=== PATIENT | female | born 1980 | race Caucasian/White ===

== ENCOUNTER → 2018-09-04 16:55 | Outpatient (CLI) | payer OTHER, SELFPAY ==
[2018-09-08 12:51] LABS: HPV Reflexed? NOT INDICATED
== END ==
PROVIDERS: Visit Provider Obstetrics & Gynecology
DX: Z12.4 Encounter for screening for malignant neoplasm of cervix (principal)
CPT/HCPCS: 87624; 88175; G0145

== ENCOUNTER → 2019-01-08 16:22 | Outpatient (CLI) | payer BC, SELFPAY | DX: E34.9 Endocrine disorder, unspecified (principal) | CPT/HCPCS: 36415; 84144 ==

== ENCOUNTER → 2020-03-24 09:03 | Outpatient (CLI) | payer BC, SELFPAY ==
[2020-03-24 10:36] LABS: Progesterone Level 18.11 ng/mL (See Comment)
== END ==
DX: N94.6 Dysmenorrhea, unspecified (principal); N94.10 Unspecified dyspareunia; N80.9 Endometriosis, unspecified
CPT/HCPCS: 36415; 84144

== ENCOUNTER → 2020-03-28 11:24 | Outpatient (CLI) | payer BC, SELFPAY ==
[2020-03-28 13:31] LABS: Progesterone Level 4.52 ng/mL (See Comment)
== END ==
DX: N94.6 Dysmenorrhea, unspecified (principal); N94.10 Unspecified dyspareunia; N80.9 Endometriosis, unspecified
CPT/HCPCS: 36415; 84144

== ENCOUNTER → 2020-04-01 10:19 | Outpatient (CLI) | payer BC, SELFPAY ==
[2020-04-01 11:52] LABS: Progesterone Level 4.94 ng/mL (See Comment)
== END ==
DX: N94.6 Dysmenorrhea, unspecified (principal); N94.10 Unspecified dyspareunia; N80.9 Endometriosis, unspecified
CPT/HCPCS: 36415; 84144

== ENCOUNTER → 2020-04-14 | Outpatient (CLI) | payer BC, SELFPAY | END | disposition home or self-care (01) | LOC: LABSPEC 10:47 | DX: Z03.818 Encounter for observation for suspected exposure to other biological agents ruled out (principal) | CPT/HCPCS: 87635; G2023; U0003 ==

== ENCOUNTER 2020-06-25 18:11 | Emergency (ER) | payer BC, SELFPAY ==
[2020-06-25 18:12] VITALS: BP 132/90; PULSE 70; RESP 14; TEMP 36.6; O2SAT 96; BMI 21.7
--- NOTE | 2020-06-25 18:39 | ED.VIS.GEN ---
History of Present Illness Chief Complaint: Laceration Informant: Patient Narrative: Patient is a 40-year-old previously healthy female who presents to the emergency department for laceration to her left forearm. She states that she had a knife that was designed to cut potatoes into fries. Had multiple blades on it. It slipped and cut her wrist. Bleeding controlled prior to arrival in the ED. She is not on any anticoagulation or antiplatelet medications. Incision or range of motion of the hand or fingers. She believes that her last tetanus shot was greater than 5 years ago. No other injury noted. Past Medical History - Allergies and Home Meds Allergies/Adverse Reactions: Allergies No Known Allergies Allergy (Verified 06/25/20 18:12) Primary Care Physician: Care Physician,No Primary [Primary Care Provider] - 7 Days for suture removal Mari Pearson [[facility]] - Prior records reviewed: Yes Past Medical History: None Review of Systems All systems negative except as indicated General: Denies: Chills, Fever Cardiovascular: Denies: Chest pain Respiratory: Denies: Dyspnea Gastrointestinal: Denies: Abdominal pain, Nausea, Vomiting Musculoskeletal: Reports: Extremity Pain. Denies: Swelling Skin: Reports: Wounds Neurological: Denies: Weakness, Parasthesia, Numbness Hematologic: Denies: Easy bruising, Easy bleeding Physical Exam Vital Signs/Narrative: Vital Signs Temp Pulse Resp BP Pulse Ox 06/25/20 18:12 97.8 F 70 14 132/90 H 96 General: Well nourished, Well developed Head: Normocephalic, Atraumatic Eyes: Perrl, EOMI ENT: Moist mucous membranes Neck: Supple Cardiovascular: Regular rate Respiratory: No distress Extremities: - - Has 4 lacerations varying in depth. There is part of the skin avulsed. No tendon, nerve or vasculature involvement. No foreign body appreciated. Good range of motion of fingers and wrist. Sensation intact. Good capillary refill. Skin: Normal color, No rash Neurological: Alert Psychological: Normal affect, Normal Mood Diagnostic/Tx/Re-eval - Medical Decision Making Patient presents to the ED for laceration to her left wrist. Will update her on her tetanus shot. 2 of the lacerations will require repair. Patient's lacerations were repaired. She tolerated the procedure well without any apparent complication. She is to monitor for evidence of infection. She is otherwise neurovascularly intact. She is to have the sutures removed in 7 to 10 days. She does not have a PCP so she was given a referral for 1. She is to monitor for evidence of infection. She understands and is agreeable this plan. Will discharge home in stable condition. Procedures Procedure(s): Laceration repair: Informed consent was obtained before procedure started. The appropriate timeout was taken. The area was prepped and draped in the usual sterile fashion. Local anesthesia was achieved using LET. The wound was copiously irrigated. 3 6-0 Ethilon simple interrupted sutures were placed in both lacerations. Each laceration is 3cm in length A dressing/antibiotic oinment was applied to the area and anticipatory guidance, as well as standard post procedure care, was explained. Return precautions are given. The patient tolerated the procedure well without any apparent complications. Follow-up visit set for suture removal and evaluation of laceration. ED Disposition - Plan for ED Patient: Disposition: Home or Assisted Living Diagnosis: Laceration of wrist Instructions: ED Laceration All Closures Referrals: Care Physician,No Primary [Primary Care Provider] - 7 Days for suture removal Mari Pearson [[facility]] -
[2020-06-25] MEDS: Lidocaine/Epi/Tetracaine 50 ML 1 APPLIC TOPICAL (19:09)
[2020-06-25] MEDS: Diphth,Pertuss(Acell),Tet Vac 0.5 ML Vial IM (19:09)
[2020-06-25 20:12] VITALS: RESP 16
== END 2020-06-25 20:13 | disposition home or self-care (01) ==
PROVIDERS: Emergency Provider Emergency Medicine
DX: S51.812A Laceration without foreign body of left forearm, initial encounter (principal); W26.0XXA Contact with knife, initial encounter
CPT/HCPCS: 12002; 90471; 90715; 99282

== ENCOUNTER → 2020-07-21 13:43 | Outpatient (CLI) | payer BC, SELFPAY ==
[2020-06-25 18:12] VITALS: BMI 21.7
[2020-07-21 15:58] LABS: Progesterone Level 15.94 ng/mL (See Comment)
== END ==
DX: E34.9 Endocrine disorder, unspecified (principal)
CPT/HCPCS: 36415; 84144

== ENCOUNTER → 2020-12-15 16:32 | Outpatient (CLI) | payer BC, SELFPAY | PROVIDERS: Referring Provider Obstetrics & Gynecology; Visit Provider Obstetrics & Gynecology | DX: N94.6 Dysmenorrhea, unspecified (principal) | CPT/HCPCS: 36415; 84144 ==

== ENCOUNTER → 2021-01-16 | Outpatient (CLI) | payer BC, SELFPAY ==
[2021-01-21 17:28] LABS: HPV Reflexed? NOT INDICATED
== END | disposition home or self-care (01) ==
LOC: LABSPEC 13:07
PROVIDERS: Visit Provider Obstetrics & Gynecology
DX: Z12.4 Encounter for screening for malignant neoplasm of cervix (principal)
CPT/HCPCS: 88175; G0145

== ENCOUNTER → 2022-03-04 | Outpatient (CLI) | payer BC, SELFPAY ==
--- NOTE | 2022-03-04 16:18 | BI_ITS ---
MAMMOGRAPHY - BILATERAL SCREENING REASON FOR EXAM: Female, 41 years old. Routine annual screening examination. PERTINENT HISTORY: Non-contributory. TECHNIQUE: Digital bilateral breast brenden (3D mammographic acquisition) in the CC and MLO projections. 2-D mediolateral oblique (MLO) and craniocaudad (CC) views of both breasts were obtained. CAD: Full Field Digital Mammography with Computer Added Detection was performed. COMPARISON: None. Baseline examination. FINDINGS: Breast Composition: The breasts are extremely dense, which lowers the sensitivity of mammography. There are no dominant masses or suspicious calcifications. No other significant abnormalities are identified. BI/SCRN MAMM (CAD)W/BRENDEN BILAT IMPRESSION: Negative screening mammogram. Yearly followup mammogram recommended. (A) ASSESSMENT CATEGORY: BIRADS Category 1: Negative. A letter regarding these results will be sent to the patient by the facility within 30 days. Approximately 10% of breast cancers are not detected by mammography. A normal mammogram should not delay biopsy of a clinically suspicious abnormality. [id number] Electronically Signed: Gopi Ibrahim MD at 8:14 EDT ,
== END | disposition home or self-care (01) ==
LOC: OPBI 16:16
PROVIDERS: Visit Provider Obstetrics & Gynecology
DX: Z12.31 Encounter for screening mammogram for malignant neoplasm of breast (principal)
CPT/HCPCS: 77063; 77067

== ENCOUNTER → 2023-03-30 | Outpatient (CLI) | payer BC, SELFPAY ==
--- NOTE | 2023-03-30 15:44 | BI_ITS ---
MAMMOGRAPHY - BILATERAL SCREENING REASON FOR EXAM: Female, 42 years old. Routine annual screening examination. PERTINENT HISTORY: Aunt with breast cancer. TECHNIQUE: Digital bilateral breast brenden (3D mammographic acquisition) in the CC and MLO projections. 2-D mediolateral oblique (MLO) and craniocaudad (CC) views of both breasts were obtained. CAD: Full Field Digital Mammography with Computer Added Detection was performed. COMPARISON: Mammogram from 03/04/2022. FINDINGS: Breast Composition: The breasts are extremely dense, which lowers the sensitivity of mammography. There is an asymmetry in the left central slightly outer breast, posterior depth, approximately 5.4 cm posterior to the nipple and seen best on 3-D cc views. This may correlate to the asymmetry in the left lower breast, posterior depth, approximately 5 cm posterior to the nipple and seen best on 3-D MLO views. Further assessment with spot compression and if needed is recommended. No other significant abnormalities are identified. No abnormal calcifications. BI/SCRN MAMM (CAD)W/BRENDEN BILAT IMPRESSION: Further imaging evaluation recommended, as described above. (E) Recall Side: Left Breast ASSESSMENT CATEGORY: BIRADS Category 0: Incomplete. Need additional imaging evaluation. A letter regarding these results will be sent to the patient by the facility within 30 days. Approximately 10% of breast cancers are not detected by mammography. A normal mammogram should not delay biopsy of a clinically suspicious abnormality. Electronically Signed: Darvin Garber DO at 16:22 EDT ,
== END | disposition home or self-care (01) ==
LOC: OPBI 15:42
PROVIDERS: Referring Provider Obstetrics & Gynecology; Visit Provider Obstetrics & Gynecology
DX: Z12.31 Encounter for screening mammogram for malignant neoplasm of breast (principal)
CPT/HCPCS: 77063; 77067

== ENCOUNTER → 2023-04-08 | Outpatient (CLI) | payer BC, SELFPAY ==
--- NOTE | 2023-04-08 13:24 | US_ITS ---
STUDY: ULTRASOUND BREAST - LEFT REASON FOR EXAM: Female, 42 years old. Abnormal screening mammogram. TECHNIQUE: Axial and longitudinal images of the LEFT breast were performed with a high resolution ultrasound transducer. # OF IMAGES: 14 COMPARISON: Comparison is made with prior mammogram done earlier in the day. FINDINGS: LEFT Breast: The inferior aspect of the left breast was examined with ultrasound. There is a 1.2 cm x 0.7cm x 0.4 cm complex cyst at the 6:00 position of the breast at 6 cm from the nipple. Adjacent to this at the 5:00 position of the breast at 6 cm from the nipple, there is a 1 cm x 1.2 cm x 0.4 cm complex cyst. Biopsy recommended. US/Breast Limited Unilateral IMPRESSION: Complex cysts seen at the 6:00 and 5:00 position of the breast as described. Biopsy recommended. ASSESSMENT CATEGORY: BIRADS Category 4: Suspicious - Biopsy Should Be Considered. A letter regarding these results will be sent to the patient by the facility within 30 days. Electronically Signed: Gopi Ibrahim MD at 8:37 EDT ,
--- NOTE | 2023-04-08 13:24 | BI_ITS ---
MAMMOGRAPHY - UNILATERAL DIAGNOSTIC: LEFT BREAST REASON FOR EXAM: Female, 42 years old. Abnormal screening mammogram. PERTINENT HISTORY: Aunt with breast cancer. TECHNIQUE: Compression spot views of the left breast were obtained. CAD: Full Field Digital Mammography with Computer Added Detection was performed. COMPARISON: Comparison is made with prior study March 30, 2023. FINDINGS: Breast Composition: The breasts are extremely dense, which lowers the sensitivity of mammography. Persistent 8.7 mm x 6.9 mm nodular density in the inferior deep slightly lateral aspect of the left breast. Correlation with ultrasound is recommended. No other significant abnormalities are identified. BI/DIAG MAMM W/CAD, UNILAT IMPRESSION: Persistent 8.7 mm x 6.9 mm nodular density at the 5 to 6:00 position of the left breast. Correlation with ultrasound is recommended. ASSESSMENT CATEGORY: BIRADS Category 0: Incomplete. Need additional imaging evaluation. A letter regarding these results will be sent to the patient by the facility within 30 days. Approximately 10% of breast cancers are not detected by mammography. A normal mammogram should not delay biopsy of a clinically suspicious abnormality. Electronically Signed: Gopi Ibrahim MD at 10:06 EDT ,
== END | disposition home or self-care (01) ==
LOC: OPBI 13:21
PROVIDERS: Referring Provider Obstetrics & Gynecology; Visit Provider Obstetrics & Gynecology
DX: N64.89 Other specified disorders of breast (principal)
CPT/HCPCS: 76642; 77065

== ENCOUNTER → 2023-05-17 | Outpatient (CLI) | payer BC, SELFPAY ==
--- NOTE | 2023-05-17 | BRBX_PTH ---
PATIENT: SULMA DICKERSON LOC: [facility]#:[id number] AGE/SX: 42/F ROOM: RE05/17/[address]: Dr. Abi Hassan MD : 1980 BED: DIS: 05/17/2023 SPEC #: [id number] RECD: 05/17/23 15:02 STATUS: ILANA TABITHA #: [id number] DIALLO: 05/17/23 00:[address]: Abi Hassan DEPT: SURGICAL PATHOLOGY RECD BY: Segun Amaya ENTERED: 05/18/23 09:20 SP TYPE: BREAST BX OTHR DR: No Primary Care Phys Tissues: Left breast, NOS Procedures: Surgery Specimen Level IV HEADER OPERATION: Left breast biopsy PRE-OP DIAGNOSIS: Left breast mass TISSUE SUBMITTED: Left breast mass MICROSCOPIC DIAGNOSIS Left breast mass, core biopsy: Cystic apocrine metaplasia. No evidence of malignancy. AM:am 05/19/23 MICROSCOPIC DESCRIPTION Slides are reviewed. GROSS DESCRIPTION Received is one container labeled with the patient name and designated left brat mass. The specimen consists of multiple irregular fragments of light mckeon soft tissue that in aggregate measure 1.5 x .5 x .5 cm. The specimen is totally submitted in one cassette. / SJ:cc 05/18/23 TC:5 CPT:78903
--- NOTE | 2023-05-17 13:56 | US_ITS ---
STUDY: ULTRASOUND BREAST - LEFT REASON FOR EXAM: Female, 43 years old. Ultrasound-guided left breast biopsy. TECHNIQUE: Axial and longitudinal images of the LEFT breast were performed with a high resolution ultrasound transducer. # OF IMAGES: 36 COMPARISON: Comparison is made with prior sonogram dated April 08, 2023. FINDINGS: LEFT Breast: Under direct sonographic guidance, the surgeon performed core biopsies of the nodule at the 5:00 position of the breast at 6 cm from the nipple. US/US Breast Biopsy 1st Lesion IMPRESSION: Ultrasound-guided breast biopsy of the hypoechoic solid nodule at the 5:00 position of the breast at 6 cm from the nipple. ASSESSMENT CATEGORY: BIRADS Category 2: Benign. A letter regarding these results will be sent to the patient by the facility within 30 days. Electronically Signed: Gopi Ibrahim MD at 11:01 EDT ,
--- NOTE | 2023-05-17 14:54 | OP.PCM_ITS ---
Report of Operation Date of Procedure: 05/17/23 Pre-Operative Diagnosis: Left breast complex cyst x2 Post-Operative Diagnosis: Left breast complex cyst x1 Surgery/Procedure Performed:: Ultrasound guided left breast biopsy Surgeon: Abi Hassan Type of Anesthesia: Local Estimated Blood Loss (mL): < 10 cc Description of Procedure: Procedure: Left ultrasound-guided core biopsy Indications: 43 year-old female with complex cyst nodule at 5:00 and 6:00 in the left breast 6 centimeters from the nipple repeat ultrasound showed the 6:00 nodule to be more cystic in nature this biopsy was only done for the 5:00 lesion. Risk benefits were discussed the patient and she elected to proceed with ultrasound guided core biopsy with clip placement Description of procedure: Patient was brought into the ultrasound room in the left breast was marked. A timeout was completed verifying correct patient, procedure, site, specially, prior to beginning procedure. The left breast was prepped and draped in usual sterile fashion and using local anesthesia was obtained with 1% lidocaine with epi. The lesion was located with the ultrasound. Small incision was made with 11 blade to introduced the mammotome through the skin. Under ultrasound guidance multiple core samples were obtained using then 13-gauge mammotome and sent in formalin for pathology. The [employer] dual ultra ribbon clip was then deployed into the biopsy cavity under ultrasound guidance and a picture was taken. Upon completion procedure hemostasis was obtained and a Steri-Strip and OpSite were placed. Patient was then taken to the mammography suite for clip verification. The clip was verified. The patient tolerated the procedure well and was discharged from the breast imaging department good condition. Complications none
== END | disposition home or self-care (01) ==
PROVIDERS: Referring Provider Surgery; Visit Provider Surgery
DX: N60.82 Other benign mammary dysplasias of left breast (principal); R92.8 Other abnormal and inconclusive findings on diagnostic imaging of breast
CPT/HCPCS: 19083; 88305

== ENCOUNTER → 2023-11-11 | Outpatient (CLI) | payer BC, SELFPAY ==
--- NOTE | 2023-11-11 08:53 | US_ITS ---
STUDY: ULTRASOUND BREAST - LEFT REASON FOR EXAM: Female, 43 years old. Short interval follow-up TECHNIQUE: Axial and longitudinal images of the LEFT breast were performed with a high resolution ultrasound transducer. # OF IMAGES: 41 COMPARISON: 04/08/2023 FINDINGS: LEFT Breast: Heterogeneous background echotexture. At 5:00, 6 cm in the nipple, there is been interval decrease in the size of the oval parallel circumscribed hypoechoic mass from 1.2 cm in diameter to 0.4 cm in diameter with an adjacent marking clip consistent with previously biopsied mass. At 6:00, 6 cm nipple, there is no change in the 1.1 cm oval parallel circumscribed hypoechoic mass with no posterior features.: US/Breast Limited Unilateral IMPRESSION: 1. Interval decrease in size of hypoechoic mass at 5:00 after interval biopsy with a marking clip. 2. No change 1.1 cm oval hypoechoic mass. ASSESSMENT CATEGORY: BIRADS Category 2: Benign. A letter regarding these results will be sent to the patient by the facility within 30 days. Electronically Signed: Shawn Faria MD at 17:42 EST ,
== END | disposition home or self-care (01) ==
PROVIDERS: Referring Provider Surgery; Visit Provider Surgery
DX: N63.20 Unspecified lump in the left breast, unspecified quadrant (principal)
CPT/HCPCS: 76642

== ENCOUNTER → 2024-04-04 | Outpatient (CLI) | payer BC, SELFPAY ==
[2024-04-04 09:18] LABS: Hematocrit 40.4 % (37-47); Mean Corp Hgb Conc 32.2 g/dL (32-36); Mean Corpuscular Hgb 28.8 pg (27.0-32.0); Mean Corpuscular Volume 89.6 fL (81-99); Mean Platelet Vol. 10.8 fl (6.2-12.0); Platelet Count 193 K/mm3 (150-450); RBC Distribution Width CV 12.9 % (11.6-14.6); RBC Distribution Width SD 42.3 fl (35.1-43.9); Red Blood Count 4.51 M/mm3 (4.2-5.4); White Blood Count 5.3 K/mm3 (4.4-11.0)
[2024-04-04 09:57] LABS: Glucose 75GTT - 30 minutes 100 mg/dL (100-160)
[2024-04-04 09:59] LABS: Glucose 75GTT - Fasting 84 mg/dL (70-99)
[2024-04-04 10:00] LABS: Bedside Glucose 86 mg/dL (74-106)
[2024-04-04 10:11] LABS: Glucose 75GTT - 60 minutes 77 mg/dL (100-160)
[2024-04-04 10:31] LABS: Glucose 75GTT - 120 minutes 82 mg/dL (70-140)
[2024-04-04 12:32] LABS: Prolactin 10.2 ng/mL; Thyroid Stim Hormone (TSH) 1.34 uIU/mL (0.358-3.74)
[2024-04-04 12:32] LABS: Prolactin 19.8 ng/mL; Thyroid Stim Hormone (TSH) 1.89 uIU/mL (0.358-3.74)
[2024-04-04 14:30] LABS: ALB/GLOB Ratio 1.1 RATIO (0.9-2.4); AST(SGOT) 17 U/L (15-37); Alanine Aminotransfer ALT/SGPT 18 U/L (13-56); Albumin, Serum 3.9 g/dL (3.2-5.0); Alkaline Phosphatase 64 U/L (45-117); Anion Gap 4 (5-15); BUN 14 mg/dL (7-18); BUN/Creat Ratio 17.5 RATIO (10-20); Calcium,Total 9.3 mg/dL (8.5-10.1); Chloride 107 mmol/L (98-107); Cholesterol 168 mg/dL (200); EST Glomerular Filtration Rate 83 mL/min (>60); Est Glom Filt Rate - Afr Amer 101 mL/min (>60); Free T3 2.8 pg/mL (2.18-3.98); Globulin 3.7 g/dL (2.2-4.2); Glucose 76 mg/dL (74-106); High Density Lipoprotein 70 mg/dL; Potassium 4.1 mmol/L (3.5-5.1); Prolactin 20.4 ng/mL; Protein, Total 7.6 g/dL (6.4-8.2); Sodium Level 137 mmol/L (136-145); T4 Free Direct 0.88 ng/dL (0.76-1.46); Thyroid Stim Hormone (TSH) 1.81 uIU/mL (0.358-3.74); Triglycerides 55 mg/dL; Very Low Density Lipoprotein 11 mg/dL (5-40)
[2024-04-04 17:09] LABS: T3 Total - Triiodothyronine 1.07 ng/mL (0.6-1.81)
== END | disposition home or self-care (01) ==
LOC: LAB 07:10
PROVIDERS: Referring Provider Obstetrics & Gynecology; Visit Provider Obstetrics & Gynecology
DX: Z01.419 Encounter for gynecological examination (general) (routine) without abnormal findings (principal); Z13.228 Encounter for screening for other metabolic disorders; R73.09 Other abnormal glucose; E28.9 Ovarian dysfunction, unspecified
CPT/HCPCS: 36415; 80053; 80061; 82951; 82952; 82962; 84146; 84439; 84443; 84480; 84481; 85027

== ENCOUNTER → 2024-04-10 | Outpatient (CLI) | payer BC, SELFPAY ==
--- NOTE | 2024-04-10 16:56 | BI_ITS ---
MAMMOGRAPHY - BILATERAL SCREENING REASON FOR EXAM: Female, 43 years old. Routine annual screening examination. PERTINENT HISTORY: Non-contributory. TECHNIQUE: Digital bilateral breast brednen (3D mammographic acquisition) in the CC and MLO projections. 2-D mediolateral oblique (MLO) and craniocaudad (CC) views of both breasts were obtained. CAD: Full Field Digital Mammography with Computer Added Detection was performed. COMPARISON: Comparison is made with prior study March 30, 2023 and April 08, 2023. FINDINGS: Breast Composition: The breasts are extremely dense, which lowers the sensitivity of mammography. There are no dominant masses or suspicious calcifications. A tissue marker is seen in the deep central slightly lateral aspect of the left breast and compared with prior biopsy. The previously seen nodular density is not seen at this time most likely represents aspiration of a cyst. No other significant abnormalities are identified. BI/SCRN MAMM (CAD)W/BRENDEN BILAT IMPRESSION: Stable bilateral screening mammogram. Yearly follow-up mammogram recommended. (A) ASSESSMENT CATEGORY: BIRADS Category 2: Benign. A letter regarding these results will be sent to the patient by the facility within 30 days. Approximately 10% of breast cancers are not detected by mammography. A normal mammogram should not delay biopsy of a clinically suspicious abnormality. [id number] Electronically Signed: Gopi Ibrahim MD at 8:41 EDT ,
== END | disposition home or self-care (01) ==
LOC: OPBI 04-11 07:16
PROVIDERS: Referring Provider Obstetrics & Gynecology; Visit Provider Obstetrics & Gynecology
DX: Z12.31 Encounter for screening mammogram for malignant neoplasm of breast (principal)
CPT/HCPCS: 77063; 77067

== ENCOUNTER → 2024-05-16 | Outpatient (CLI) | payer BC, SELFPAY ==
--- NOTE | 2024-05-16 07:47 | US_ITS ---
STUDY: ULTRASOUND BREAST - LEFT REASON FOR EXAM: Female, 43 years old. Short interval follow-up TECHNIQUE: Axial and longitudinal images of the LEFT breast were performed with a high resolution ultrasound transducer. # OF IMAGES: 18 COMPARISON: 11/11/2023 FINDINGS: LEFT Breast: Heterogeneous background echotexture. At 5:00, 6 cm from the nipple, ultrasound demonstrates no change in the 4 mm oval parallel circumscribed hypoechoic mass with adjacent marking clip consistent with a previously biopsied mass. At 6:00, 6 cm from nipple, there is no change in the 1 cm oval parallel circumscribed hypoechoic mass with central increased echogenicity no posterior features which may represent an intramammary lymph node.: US/Breast Limited Unilateral IMPRESSION: 1. No change in subcentimeter previously biopsied mass in the lower outer quadrant left breast. 2. No change in 1 cm probable intramammary lymph node in the inferior left breast. ASSESSMENT CATEGORY: BIRADS Category 2: Benign. A letter regarding these results will be sent to the patient by the facility within 30 days. Electronically Signed: Shawn Faria MD at 12:28 EDT ,
== END | disposition home or self-care (01) ==
PROVIDERS: Referring Provider Surgery; Visit Provider Surgery
DX: N63.20 Unspecified lump in the left breast, unspecified quadrant (principal)
CPT/HCPCS: 76642

== ENCOUNTER → 2025-05-18 | Outpatient (CLI) | payer BC, SELFPAY ==
--- OUTSIDE RECORDS SUMMARY | 2025-05-18 08:27 | XMS RPT_ITS | CCD ---
Author Organization [facility] Care Team Providers Care Treasury Assistant Name Role Phone Care Physician, No Primary Primary Care Provider Unavailable Care Physician, No Primary Referring Provider Un available Dr. Abi Hassan Attending Provider Abi Hassan Attending Unavailable Abi Hassan Referring Unavailable Care Physician, No Primary Primary Care Unava ilable Abi Hassan Attending Unavailable Care Physician, No Primary Primary Care Unava ilable Care Physician, No Primary Referring Unava ilable Abi Hassan Attending Unavailable Abi Hassan Referring Unavailable Care Physician, No Primary Primary Care Unava ilable Alida Hooper Attending Unavailable Alida Hooper Referring Unavailable Care Physician, No Primary Primary Care Unava ilable Alida Hooper Attending Unavailable Alida Hooper Referring Unavailable Care Physician, No Primary Primary Care Unava ilable Care Physician, No Primary Primary Care Unava ilable Abi Hassan Referring Unavailable Abi Hassan Attending Unavailable Abi Hassan Attending Unavailable RobotbAi aleman Referring Unavailable Abi Hassan Consulting Unavailable Care Physician, No Primary Primary Care Unava ilable Unavailable Primary Care Provider Unavailabl e Allergies Allergy Classification Reported Allergen(s) Allergy Type Date of Onset Reaction(s) Facility (1 source) Cephalexin Drug Allergy 11-15-2023 Itching [facility] (1 source) Cephalexin Drug Allergy 11-15-2023 [facility] Repository Medications Current Medications Medication Drug Class(es) Dates Sig (Normalized) Sig (Original) polymyxin b 45609 unt/ml / trimethoprim 1 mg/ml ophthalmic solution (1 source) Dihydrofolate Reductase Inhibitor Antibacterial, Polymyxin-class Antibacterial Start: 10-17-2024 End: 10-24-2024 take 1 drop(s) into the eye(s) every four hours trimethoprim-polymy rivera (POLYTRIM) 10,000 unit- 1 mg/mL ophthalmic solution Indications: Bacterial conjunctivitis Use 1 Drop in the right eye every 4 hours for 7 days. 10 mL 10/17/2024 10/24/2024 Active progesterone 200 mg oral capsule (5 sources) Progesterone Start: 06-25-2020 take 1 capsule by mouth once daily at bedtime progesterone micronized (PROMETRIUM) 200 mg capsule TAKE 1 CAPSULE(S) EVERY DAY BY ORAL ROUTE AT BEDTIME FOR 12 DAYS. 06/26/2020 Active Problems Problem Classification Problem Date Documented Da te Episodic/Chronic Inflammation; infection of eye (except that caused by tuberculosis or sexually transmitteddisease) (1 source) Bacterial conjunctivitis; Translations: [Unspecified conjunctivitis] 10-17-2024 Episodic Nonmalignant breast conditions (4 sources) Breast lump; Translations: [Unspecified lump in the left breast, unspecified quadrant] Onset: 05-24-2023 05-05-2023 Episodic Open wounds of extremities (4 sources) Laceration of wrist; Translations: [Laceration without foreign body of unspecified wrist, initial encounter] 06-26-2020 Episodic Other screening for suspected conditions (not mental disorders or infectious disease) (1 source) Encounter for screening mammogram for malignant neoplasm of breast; Translations: [Encounter for screening mammogram for malignant neoplasm of breast] Onset: 04-20-2024 Episodic Results Test Name Value Interpretation Reference Range Facility [facility] 10-17-2024 CNOV Office Visit ([facility]) ---- MARICRUZ DICKERSON ([id number]) 1980 F Date Time Provider Department 10/17/24 7:15 AM [facility] During your visit today, we recorded the following information about you: Temperature Pulse Respiration Blood pressure 96.9 degrees 96/minute 16/minute 118/70 Weight 66 kg Mary Darden APRN.CNP 10/17/2024 7:36 AM Signed Subjective Eye Problem Pertinent negatives include no chills, congestion, coughing, fever or sore throat. Maricruz Dickerson is a 44 year old female who presents with possible pink eye in her right eye. She was exposed to pinkeye-her daughter had it last week. She awoke this morning with eye redness, discharge and yellow crusting on eyelids. She denies eye pain, fever, chills, or associated URI symptoms. She has not used any medication in the eye. Review of Systems Constitutional: Negative for chills, fever and malaise/fatigue. HENT: Negative for congestion, ear pain and sore throat. Eyes: Positive for discharge and redness. Negative for blurred vision, double vision, photophobia and pain. Right eye visual acuity is 20/20. Respiratory: Negative for cough. Cardiovascular: Negative. BP 118/70 Pulse 96 Temp 36.1 ?C (96.9 ?F) Resp 16 Wt 66 kg (145 lb 8.1 oz) SpO2 99% No past medical history on file. No past surgical history on file. ALLERGIES Patient has no known allergies. MEDICATIONS progesterone micronized (PROMETRIUM) 200 mg capsule TAKE 1 CAPSULE(S) EVERY DAY BY ORAL ROUTE AT BEDTIME FOR 12 DAYS. (Patient not taking: Reported on 10/17/2024) No family history on file. Social History Tobacco Use Smoking status: Never Smokeless tobacco: Never Vaping Use Vaping status: Never Used Objective Physical Exam Vitals and nursing note reviewed. Constitutional: Appearance: Normal appearance. HENT: Right Ear: Tympanic membrane, ear canal and external ear normal. Left Ear: Tympanic membrane, ear canal and external ear normal. Mouth/Throat: Pharynx: Uvula midline. Eyes: General: Lids are normal. Gaze aligned appropriately. No allergic shiner. Right eye: Discharge present. Left eye: No discharge. Extraocular Movements: Extraocular movements intact. Conjunctiva/sclera: Right eye: Right conjunctiva is injected. No chemosis, exudate or hemorrhage. Left eye: Left conjunctiva is not injected. No chemosis, exudate or hemorrhage. Pupils: Pupils are equal, round, and reactive to light. Cardiovascular: Rate and Rhythm: Normal rate and regular rhythm. Heart sounds: Normal heart sounds. Pulmonary: Effort: Pulmonary effort is normal. No respiratory distress. Breath sounds: Normal breath sounds. No wheezing or rales. Musculoskeletal: Cervical back: Neck supple. Lymphadenopathy: Cervical: No cervical adenopathy. Skin: General: Skin is warm and dry. Findings: No erythema or rash. Neurological: Mental Status: She is alert. ASSESSMENT/PLAN: 1. Bacterial conjunctivitis - ICD9: 372.39, 041.9, ICD10: H10.9 - see medication orders - course and contagiousness issues discussed, including hand washing. - call if high fever, development of periorbital redness or swelling, eye pain, visual changes, concerns or if symptoms persist. - POLYMYXIN B SULFATE 10,000 UNIT-TRIMETHOPRIM 1 MG/ML EYE DROPS - Follow-up with your PCP in 3-5 days if symptoms have not improved or sooner if symptoms worsen - Discussed red flags and need for immediate medical evaluation if any occur. - Discussed supportive care treatment with fluids, rest and analgesia. - Discussed expected course of illness IVONE Lopez Kathy, APRN.CNP 10/17/2024 7:36 AM Signed ASSESSMENT/PLAN: 1. Bacterial conjunctivitis - ICD9: 372.39, 041.9, ICD10: H10.9 - see medication orders - course and contagiousness issues discussed, including hand washing. - call if high fever, development of periorbital redness or swelling, eye pain, visual changes, concerns or if symptoms persist. - POLYMYXIN B SULFATE 10,000 UNIT-TRIMETHOPRIM 1 MG/ML EYE DROPS - Follow-up with your PCP in 3-5 days if symptoms have not improved or sooner if symptoms worsen - Discussed red flags and need for immediate medical evaluation if any occur. - Discussed supportive care treatment with fluids, rest and analgesia. - Discussed expected course of illness Mary Darden APRN.CNP CONJUNCTIVITIS GENERAL INFORMATION: Conjunctivitis is also known as pink eye. It is an irritation of the underside of the eyelid and the white part of the eye. Conjunctivitis can be caused by infection, chemical irritation, or allergy. If infectious, it is very contagious. INSTRUCTIONS: The doctor has prescribed antibiotic drops or ointment. Use them as prescribed. Do not touch the dropper to the eye. Throw out the medication after completing dejuan (more content not included)... Normal [facility] SCRN MAMM (CAD)W/BRENDEN BILATo n 04-10-2024 SCRN MAMM (CAD)W/BRENDEN BILAT [facility] Imaging Services [address] [place], [place] [id number] SCRN MAMM (CAD)W/BRENDEN BILAT MR#: [id number] Acct: [id number] Name: MARICRUZ DICKERSON Rep #: [id number] : 1980 F 43 From: Gopi crane MD PCP: Care Physician,No Primary Status: REG CLI Study: SCRN MAMM (CAD)W/BRENDEN BILAT Date of Exam: 02/28 Exam# [id number] Ordering Dr: Alida Hooper MD -[id number] MAMMOGRAPHY - BILATERAL SCREENING REASON FOR EXAM: Female, 43 years old. Routine annual screening examination. PERTINENT HISTORY: Non-contributory. TECHNIQUE: Digital bilateral breast brenden (3D mammographic acquisition) in the CC and MLO projections. 2-D mediolateral oblique (MLO) and craniocaudad (CC) views of both breasts were obtained. CAD: Full Field Digital Mammography with Computer Added Detection was performed. COMPARISON: Comparison is made with prior study March 30, 2023 and April 08, 2023. FINDINGS: Breast Composition: The breasts are extremely dense, which lowers the sensitivity of mammography. There are no dominant masses or suspicious calcifications. A tissue marker is seen in the deep central slightly lateral aspect of the left breast and compared with prior biopsy. The previously seen nodular density is not seen at this time most likely represents aspiration of a cyst. No other significant abnormalities are identified. BI/SCRN MAMM (CAD)W/BRENDEN BILAT IMPRESSION: Stable bilateral screening mammogram. Yearly follow-up mammogram recommended. (A) ASSESSMENT CATEGORY: BIRADS Category 2: Benign. A letter regarding these results will be sent to the patient by the facility within 30 days. Approximately 10% of breast cancers are not detected by mammography. A normal mammogram should not delay biopsy of a clinically suspicious abnormality. [id number] Electronically Signed: Gopi Ibrahim MD at 8:41 EDT , CC: Dr. Alida Lopez MD; No Primary Care Physician International Trade Compliance Manager: Signed [facility] LAB TEST Normal [facility] Comment on above: Order Comment: INSUL IN 2 HRINSULIN 2 HR Result Comment: TEST RESULTS LIMITS Insulin, Fasting 4.7 uIU/mL 2.6-24.9 Insulin, 1/2 hour (30 min) 63.6 uIU/mL 0.0-121.9 Insulin, 1 hour (60 min) 49.4 uIU/mL 0.0-163.5 Insulin, 1 1/2 hour (90 min 27.9 uIU/mL Not Estab. Insulin, 2 hour (120 min) 45.6 uIU/mL 0.0-145.4 TESTING PERFORMED AT [facility]. ORIGINAL REPORT ON FILE IN LAB CONTAINS ADDITIONAL TEST SITE INFORMATION. Performed By: #### L 500.4050, L500.4100, L501.44995, L501.9520, L506.0400, L3100.5420, L501.9186, L801.1541, L100.0500 ####[facility] [address] [place], [place], [id number] Bedside Glucoseon 04-04-2024 FINGERSTICK GLU 86 mg/dL Normal 74-106 [facility] Comment on above: Result Comment: PEMA SRIVASTAVA OF PATIENT CARE PER NURSING PROTOCOL Performed By: #### L 501.080 ####[facility] [address] [place], [address] CBC-Complete Blood Cnt No Di ffon 04-04-2024 Erythrocyte distribution width (RBC) [Ratio] 12.9 % Normal 11.6-14.6 [facility] Comment on above: Performed By: #### L 500.4050, L500.4100, L501.65528, L501.9520, L506.0400, L3100.5420, L501.9186, L801.1541, L100.0500 #### [facility] [address] [place], [place], [id number] Hematocrit (Bld) [Volume fraction] 40.4 % Normal 37-47 [facility] Comment on above: Performed By: #### L 500.4050, L500.4100, L501.24699, L501.9520, L506.0400, L3100.5420, L501.9186, L801.1541, L100.0500 #### [facility] [address] [place], [address] Hemoglobin (Bld) [Mass/Vol] 13.0 g/dL Normal 12.0-15.0 [facility] Comment on above: Performed By: #### L 500.4050, L500.4100, L501.96685, L501.9520, L506.0400, L3100.5420, L501.9186, L801.1541, L100.0500 #### [facility] [address] [place], [address] MCH (RBC) [Entitic mass] 28.8 pg Normal 27.0-32.0 [facility] Comment on above: Performed By: #### L 500.4050, L500.4100, L501.08604, L501.9520, L506.0400, L3100.5420, L501.9186, L801.1541, L100.0500 #### [facility] [address] [place], [address] MCHC (RBC) [Mass/Vol] 32.2 g/dL Normal 32-36 [facility] Comment on above: Performed By: #### L 500.4050, L500.4100, L501.49379, L501.9520, L506.0400, L3100.5420, L501.9186, L801.1541, L100.0500 #### [facility] [address] [place], [address] MCV (RBC) [Entitic vol] 89.6 fL Normal 81-99 [facility] Comment on above: Performed By: #### L 500.4050, L500.4100, L501.88021, L501.9520, L506.0400, L3100.5420, L501.9186, L801.1541, L100.0500 #### [facility] [address] [place], [address] Platelet mean volume (Bld) [Entitic vol] 10.8 fL Normal 6.2-12.0 [facility] Comment on above: Performed By: #### L 500.4050, L500.4100, L501.39039, L501.9520, L506.0400, L3100.5420, L501.9186, L801.1541, L100.0500 #### [facility] [address] [place], [address] (798) Platelets (Bld) [#/Vol] 193 10*3/uL Normal 150-450 [facility] Comment on above: Performed By: #### L 500.4050, L500.4100, L501.79500, L501.9520, L506.0400, L3100.5420, L501.9186, L801.1541, L100.0500 #### [facility] [address] [place], [address] (038) RBC (Bld) [#/Vol] 4.51 10*6/uL Normal 4.2-5.4 [facility] Comment on above: Performed By: #### L 500.4050, L500.4100, L501.48591, L501.9520, L506.0400, L3100.5420, L501.9186, L801.1541, L100.0500 #### [facility] [address] [place], [address] RDW SD 42.3 fl Normal 35.1-43.9 [facility] Comment on above: Performed By: #### L 500.4050, L500.4100, L501.01270, L501.9520, L506.0400, L3100.5420, L501.9186, L801.1541, L100.0500 #### [facility] [address] [place], [address] WBC (Bld) [#/Vol] 5.3 10*3/uL Normal 4.4-11.0 [facility] Comment on above: Performed By: #### L 500.4050, L500.4100, L501.93716, L501.9520, L506.0400, L3100.5420, L501.9186, L801.1541, L100.0500 #### [facility] [address] [place], [address] Comprehensive Metabolic Prof [facility] 04-04-2024 Albumin [Mass/Vol] 3.9 g/dL Normal 3.2-5.0 [facility] Comment on above: Order Comment: DR LAURENT Eugene FASTING ALL LABS Y Performed By: #### L 500.4050, L500.4100, L501.77298, L501.9520, L506.0400, L3100.5420, L501.9186, L801.1541, L100.0500 #### [facility] [address] [place], [address] Albumin/Globulin [Mass ratio] 1.1 {ratio} Normal 0.9-2.4 [facility] Comment on above: Order Comment: DR LAURENT Eugene FASTING ALL LABS Y Performed By: #### L 500.4050, L500.4100, L501.99390, L501.9520, L506.0400, L3100.5420, L501.9186, L801.1541, L100.0500 #### [facility] [address] [place], [address] ALK P 64 U/L Normal 45-117 [facility] Comment on above: Order Comment: DR LAURENT Eugene FASTING ALL LABS Y Performed By: #### L 500.4050, L500.4100, L501.73104, L501.9520, L506.0400, L3100.5420, L501.9186, L801.1541, L100.0500 #### [facility] [address] [place], [address] ALT [Catalytic activity/Vol] 18 U/L Normal 13-56 [facility] Comment on above: Order Comment: DR LAURENT Eugene FASTING ALL LABS Y Performed By: #### L 500.4050, L500.4100, L501.71680, L501.9520, L506.0400, L3100.5420, L501.9186, L801.1541, L100.0500 #### [facility] [address] [place], [address] AST [Catalytic activity/Vol] 17 U/L Normal 15-37 [facility] Comment on above: Order Comment: DR LAURENT Eugene FASTING ALL LABS Y Performed By: #### L 500.4050, L500.4100, L501.35342, L501.9520, L506.0400, L3100.5420, L501.9186, L801.1541, L100.0500 #### [facility] [address] [place], [address] Bilirubin [Mass/Vol] 0.60 mg/dL Normal 0.20-1.00 [facility] Comment on above: Order Comment: DR LAURENT Eugene FASTING ALL LABS Y Result Comment: For patients on eltrombopag therapy, use of Dimension Coward TBIL is not recommended. Performed By: #### L 500.4050, L500.4100, L501.09620, L501.9520, L506.0400, L3100.5420, L501.9186, L801.1541, L100.0500 #### [facility] [address] [place], [address] BUN/CRE 17.5 RATIO Normal 10-20 [facility] Comment on above: Order Comment: DR LAURENT Eugene FASTING ALL LABS Y Performed By: #### L 500.4050, L500.4100, L501.72760, L501.9520, L506.0400, L3100.5420, L501.9186, L801.1541, L100.0500 #### [facility] [address] [place], [address] CA,Total 9.3 mg/dL Normal 8.5-10.1 [facility] Comment on above: Order Comment: DR LUARENT Eugene FASTING ALL LABS Y Performed By: #### L 500.4050, L500.4100, L501.79864, L501.9520, L506.0400, L3100.5420, L501.9186, L801.1541, L100.0500 #### [facility] [address] [place], [address] Chloride [Moles/Vol] 107 mmol/L Normal 98-107 [facility] Comment on above: Order Comment: DR LAURENT Eugene FASTING ALL LABS Y Performed By: #### L 500.4050, L500.4100, L501.84245, L501.9520, L506.0400, L3100.5420, L501.9186, L801.1541, L100.0500 #### [facility] [address] [place], [address] CO2 [Moles/Vol] 26.0 mmol/L Normal 21.0-32.0 [facility] Comment on above: Order Comment: DR LAURENT Eugene FASTING ALL LABS Y Performed By: #### L 500.4050, L500.4100, L501.02684, L501.9520, L506.0400, L3100.5420, L501.9186, L801.1541, L100.0500 #### [facility] [address] [place], [address] Creatinine [Mass/Vol] 0.80 mg/dL Normal 0.55-1.02 [facility] Comment on above: Order Comment: DR LAURENT Eugene FASTING ALL LABS Y Result Comment: The validity of the calculated GFR GFRAA in patients over 70 years has not been determined. Clinical correlation is essential. Performed By: #### L 500.4050, L500.4100, L501.71319, L501.9520, L506.0400, L3100.5420, L501.9186, L801.1541, L100.0500 #### [facility] [address] [place], [address] EST GFR - AA 101 mL/min Normal >60 [facility] Comment on above: Order Comment: DR WA NTS A FASTING ALL LABS Y Result Comment: Afri can Niuean GFR Calc Performed By: #### L 500.4050, L500.4100, L501.47380, L501.9520, L506.0400, L3100.5420, L501.9186, L801.1541, L100.0500 #### [facility] [address] [place], [address] GAP 4 Low 5-15 [facility] Comment on above: Order Comment: DR LAURENT Eugene FASTING ALL LABS Y Performed By: #### L 500.4050, L500.4100, L501.05262, L501.9520, L506.0400, L3100.5420, L501.9186, L801.1541, L100.0500 #### [facility] [address] [place], [place], [id number] (829) GFR/1.73 sq M.predicted among non-blacks MDRD (S/P/Bld) [Vol rate/Area] 83 mL/min/{1.73_m2} Normal >60 [facility] Comment on above: Order Comment: DR LAURENT Eugene FASTING ALL LABS Y Result Comment: Non- GFR Calc Performed By: #### L 500.4050, L500.4100, L501.52664, L501.9520, L506.0400, L3100.5420, L501.9186, L801.1541, L100.0500 #### [facility] [address] [facility] [place], [address] Globulin (S) [Mass/Vol] 3.7 g/dL Normal 2.2-4.2 [facility] Comment on above: Order Comment: DR LAURENT Eugene FASTING ALL LABS Y Performed By: #### L 500.4050, L500.4100, L501.22391, L501.9520, L506.0400, L3100.5420, L501.9186, L801.1541, L100.0500 #### [facility] [address] [place], [address] Glucose [Mass/Vol] 76 mg/dL Normal 74-106 [facility] Comment on above: Order Comment: DR LAURENT Eugene FASTING ALL LABS Y Performed By: #### L 500.4050, L500.4100, L501.95540, L501.9520, L506.0400, L3100.5420, L501.9186, L801.1541, L100.0500 #### [facility] [address] [place], [address] Potassium [Moles/Vol] 4.1 mmol/L Normal 3.5-5.1 [facility] Comment on above: Order Comment: DR LAURENT Eugene FASTING ALL LABS Y Performed By: #### L 500.4050, L500.4100, L501.50318, L501.9520, L506.0400, L3100.5420, L501.9186, L801.1541, L100.0500 #### [facility] [address] [place], [address] Sodium [Moles/Vol] 137 mmol/L Normal 136-145 [facility] Comment on above: Order Comment: DR LAURENT Eugene FASTING ALL LABS Y Performed By: #### L 500.4050, L500.4100, L501.55293, L501.9520, L506.0400, L3100.5420, L501.9186, L801.1541, L100.0500 #### [facility] [address] [place], [address] T PROT 7.6 g/dL Normal 6.4-8.2 [facility] Comment on above: Order Comment: DR LAURENT Eugene FASTING ALL LABS Y Performed By: #### L 500.4050, L500.4100, L501.89950, L501.9520, L506.0400, L3100.5420, L501.9186, L801.1541, L100.0500 #### [facility] [address] [place], [address] Urea nitrogen [Mass/Vol] 14 mg/dL Normal 7-18 [facility] Comment on above: Order Comment: DR LAURENT ERWIN A FASTING ALL LABS Y Performed By: #### L 500.4050, L500.4100, L501.53368, L501.9520, L506.0400, L3100.5420, L501.9186, L801.1541, L100.0500 #### [facility] [address] [place], [address] Free T3on 04-04-2024 Free T3 [Mass/Vol] 2.8 pg/mL Normal 2.18-3.98 [facility] Comment on above: Order Comment: DR LAURENT ERWIN A FASTING ALL LABSY Performed By: #### L 500.4050, L500.4100, L501.04997, L501.9520, L506.0400, L3100.5420, L501.9186, L801.1541, L100.0500 ####[facility] [address] [place], [address] Lipid Profileon 04-04-2024 Cholesterol [Mass/Vol] 168 mg/dL Normal 200 [facility] Comment on above: Order Comment: DR LAURENT Eugene FASTING ALL LABSY Result Comment: <200 mg/dL Desirable 200-240 mg/dL Borderline >240 mg/dL High Risk Performed By: #### L 500.4050, L500.4100, L501.33703, L501.9520, L506.0400, L3100.5420, L501.9186, L801.1541, L100.0500 ####[facility] [address] [place], [address] Cholesterol in HDL [Mass/Vol] 70 mg/dL Normal [facility] Comment on above: Order Comment: DR LAURENT ERWIN A FASTING ALL LABSY Result Comment: The drugs N-Acetylcysteine and Metamizole may falsely depress this assay. Reference Range HDL <40 mg/dL Low HDL Cholesterol HDL >or= 60 mg/dL High HDL Cholesterol Performed By: #### L 500.4050, L500.4100, L501.73102, L501.9520, L506.0400, L3100.5420, L501.9186, L801.1541, L100.0500 ####[facility] [address] [place], [address] Cholesterol in LDL [Mass/Vol] 87 mg/dL Normal 0-130 [facility] Comment on above: Order Comment: DR LAURENT ERWIN A FASTING ALL LABSY Performed By: #### L 500.4050, L500.4100, L501.86422, L501.9520, L506.0400, L3100.5420, L501.9186, L801.1541, L100.0500 ####[facility] [address] [place], [address] Cholesterol in VLDL [Mass/Vol] 11 mg/dL Normal 5-40 [facility] Comment on above: Order Comment: DR LAURENT ERWIN A FASTING ALL LABSY Performed By: #### L 500.4050, L500.4100, L501.75025, L501.9520, L506.0400, L3100.5420, L501.9186, L801.1541, L100.0500 ####[facility] [address] [place], [address] Triglyceride [Mass/Vol] 55 mg/dL Normal [facility] Comment on above: Order Comment: DR LAURENT ERWIN A FASTING ALL LABSY Result Comment: The drugs N-Acetylcysteine and Metamizole may falsely depress this assay. Serum Triglycerides Reference Interval Normal <150 mg/dL Borderline high 150 - 199 mg/dL High 200 - 499 mg/dL Very High > or = 500 mg/dL Performed By: #### L 500.4050, L500.4100, L501.28240, L501.9520, L506.0400, L3100.5420, L501.9186, L801.1541, L100.0500 ####[facility] [address] [place], [address] Prolactinon 04-04-2024 PROLACTIN 20.4 ng/mL Normal [facility] Comment on above: Order Comment: DR LAURENT Eugene FASTING ALL LABSY Result Comment: NORMAL REFERENCE RANGES FEMALE NON- 2.2 - 30.3 ng/mL 8.1 - 347.6 ng/mL POST-MENOPAUSAL 0.7 - 31.5 ng/mL MALE 2.5 - 17.4 ng/mL Performed By: #### L 500.4050, L500.4100, L501.58579, L501.9520, L506.0400, L3100.5420, L501.9186, L801.1541, L100.0500 ####[facility] [address] [place], [place], [phone] PROLACTIN 10.2 ng/mL Normal [facility] Comment on above: Result Comment: NORMAL REFERENCE RANGES FEMALE NON- 2.2 - 30.3 ng/mL 8.1 - 347.6 ng/mL POST-MENOPAUSAL 0.7 - 31.5 ng/mL MALE 2.5 - 17.4 ng/mL Performed By: #### L 501.9520, L3100.5420 #### [facility] [address] [place], [place], [phone] PROLACTIN 19.8 ng/mL Normal [facility] Comment on above: Order Comment: 30 NM NS Result Comment: NORMAL REFERENCE RANGES FEMALE NON- 2.2 - 30.3 ng/mL 8.1 - 347.6 ng/mL POST-MENOPAUSAL 0.7 - 31.5 ng/mL MALE 2.5 - 17.4 ng/mL Performed By: #### L 501.9520, L3100.5420 ####[facility] [address] [place], [address] T3 Total - Triiodothyronineo n 04-04-2024 T3 Total 1.07 ng/mL Normal 0.6-1.81 [facility] Comment on above: Performed By: #### L 500.4050, L500.4100, L501.76927, L501.9520, L506.0400, L3100.5420, L501.9186, L801.1541, L100.0500 ####[facility] [address] [place], [address] T4 Free Directon 04-04-2024 T4 FREE DIRECT 0.88 ng/dL Normal 0.76-1.46 [facility] Comment on above: Order Comment: DR LAURENT Eugene FASTING ALL LABSY Performed By: #### L 500.4050, L500.4100, L501.71593, L501.9520, L506.0400, L3100.5420, L501.9186, L801.1541, L100.0500 ####[facility] [address] [place], [address] Thyroid Stim Hormone (TSH)on 04-04-2024 TSH 1.81 uIU/mL Normal 0.358-3.74 [facility] Comment on above: Order Comment: DR LAURENT ERWIN A FASTING ALL LABSY Performed By: #### L 500.4050, L500.4100, L501.66797, L501.9520, L506.0400, L3100.5420, L501.9186, L801.1541, L100.0500 ####[facility] [address] [place], [address] TSH 1.34 uIU/mL Normal 0.358-3.74 [facility] Comment on above: Performed By: #### L 501.9520, L3100.5420 #### [facility] [address] [place], [address] TSH 1.89 uIU/mL Normal 0.358-3.74 [facility] Comment on above: Order Comment: 30 NM NS Performed By: #### L 501.9520, L3100.5420 ####[facility] [address] [place], [address] Surgery Visit Reporton 11-[address] [facility] [address] [place] [address] OFFICE VISIT Date of Service: 11/15/23 MR#: [id number] Acct: [id number] Name: MARICRUZ DICKERSON Rep #: [id number] : 1980 Provider: Dr. Abi aleman MD Age/Sex: 43/F Location: [facility] Status: Signed Intake Vital Signs 04/26/23 08:38 Height 5 ft 6 in Intake Visit Reasons: 6 M FU BREAST US 11/11/23 Chief Complaint: 6 month breast US Is patient in pain?: No Allergies cephalexin Adverse Reaction (Verified 11/15/23 09:03) Itching Medications progesterone micronized 200 mg capsule 200 mg PO QHS 06/25/20 [History Confirmed 11/15/23] PFSH Medical History Endometriosis determined by laparoscopy Left breast mass Family History Mother Arthritis Hypertension Hyperlipidemia Father Diabetes Social History Smoking Status: Never smoker HPI HPI HPI: 43-year-old female presents for follow-up 6-month breast ultrasound. Patient's 5:00 lesion is smaller in size with a clip seen-apocrine metaplasia was the pathology. 6:00 lesion is seen also called hypoechoic???report given benign discussed with radiologist agreed to repeat at 6-month follow- up ultrasound. Patient denies any pain in her breast or nipple discharge. ROS General General: No weight change, appetite, fatigue, colon cancer, breast cancer or weakness HEENT HEENT: No difficulty swallowing, eye injury, eye surgery, swollen glands or hoarseness Endo Endocrine: No thyroid disease, diabetes mellitus, thyroid cancer, Hair loss, heat intolerance or cold intolerance Skin Skin: No rash or changing moles Breast Breast: Yes abnormal US; No left breast lump, right breast lump, nipple discharge, breast pain, abnormal mammogram or breast enlargement Musc Musculoskeletal: No back problems, arthritis, rheumatoid arthritis, gout or joint pain Cardio Cardiovascular: No murmur, pacemaker, heart disease, atrial fibrillation, high blood pressure, heart attack, heart stent, palpitations, shortness of breat with exertion or chest pain Psych Psychiatric: No depression, anxiety or hearing voices Resp Respiratory: No shortness of breath, No sleep apnea, No cough, No COPD, No asthma, No emphysema and No wheezing Gastro Gastrointestinal: No abdominal pain, No nausea or vomiting, No diarrhea, No constipation, No blood in stool, No acid reflux, No hemorrhoids, No ulcers, No gallbladder problem and No black,tarry stools Sriram Hematologic: No blood thinners, No blood disorders, No bleeding, No anemia and No blood clots Neuro Neurologic: No system reviewed and no additional complaints, except as documented, No as per HPI, No abnormal gait, No abnormal hearing, No abnormal movements, No abnormal speech, No behavioral changes, No burning sensations, No confusion, No convulsions, No disequilibrium, No dizziness, No localized weakness, No frequent falls, No headache(s), No lack of coordination, No loss of vision, No memory loss, No numbness, No other visual disturbances, No radicular pain, No restless legs, No sensory deficit, No syncope, No tingling, No tremor(s), No weakness and No other Exam Const General: cooperative, healthy appearing and comfortable Assessment and Plan Assessment and Plan (1) Left breast mass: Status: Acute Orders: Orders Breast Limited Unilateral 6 Months N63.20 - Unspecified lump in the left breast, unspecified quadrant Plan Will plan for repeat left breast ultrasound in 6 months. Patient was agreeable with plan. Abi Hassan M.D. Pager: [phone] [facility] [address] [place] [address], [address] [place] [address] Office: [phone] Coding Level of Care Code Off vis,est,level 3 Diagnoses Left breast mass N63.20 11/18/23 0823 Date Abi Hassan MD [facility] Signature: Date (if applicable) CC: Normal [facility] Breast Limited Unilateralon 11-11-2023 Breast Limited Unilateral [facility] [address] [place] [address] Breast Limited Unilateral MR#: [id number] Acct: [id number] Name: MARICRUZ DICKERSON Rep #: [id number] : 1980 F 43 From: Shawn Faria MD PCP: Care Physician,No Primary Status: REG CLI Study: Breast Limited Unilateral Date of Exam: Exam# [id number] Ordering Dr: Abi Hassan MD -[id number] STUDY: ULTRASOUND BREAST - LEFT REASON FOR EXAM: Female, 43 years old. Short interval follow-up TECHNIQUE: Axial and longitudinal images of the LEFT breast were performed with a high resolution ultrasound transducer. # OF IMAGES: 41 COMPARISON: 04/08/2023 FINDINGS: LEFT Breast: Heterogeneous background echotexture. At 5:00, 6 cm in the nipple, there is been interval decrease in the size of the oval parallel circumscribed hypoechoic mass from 1.2 cm in diameter to 0.4 cm in diameter with an adjacent marking clip consistent with previously biopsied mass. At 6:00, 6 cm nipple, there is no change in the 1.1 cm oval parallel circumscribed hypoechoic mass with no posterior features.: US/Breast Limited Unilateral IMPRESSION: 1. Interval decrease in size of hypoechoic mass at 5:00 after interval biopsy with a marking clip. 2. No change 1.1 cm oval hypoechoic mass. ASSESSMENT CATEGORY: BIRADS Category 2: Benign. A letter regarding these results will be sent to the patient by the facility within 30 days. Electronically Signed: Shawn Faria MD at 17:42 EST , CC: Dr. Abi Hassan MD; No Primary Care Physician International Trade Compliance Manager: Signed Normal [facility] Operative Reporton [address] [facility] Medical Records Department [address] [place] [address] Operative Report 05/17/23 1454 MR#: [id number] Acct: [id number] Name: MARICRUZ DICKERSON Rep #: [id number] : 1980 43 From: Abi Hassan MD PCP: Care Physician,No Primary Status:REG CLI Location: US Report of Operation Date of Procedure: 05/17/23 Pre-Operative Diagnosis: Left breast complex cyst x2 Post-Operative Diagnosis: Left breast complex cyst x1 Surgery/Procedure Performed:: Ultrasound guided left breast biopsy Surgeon: Abi Hassan Type of Anesthesia: Local Estimated Blood Loss (mL): < 10 cc Description of Procedure: Procedure: Left ultrasound-guided core biopsy Indications: 43 year-old female with complex cyst nodule at 5:00 and 6:00 in the left breast 6 centimeters from the nipple repeat ultrasound showed the 6:00 nodule to be more cystic in nature this biopsy was only done for the 5:00 lesion. Risk benefits were discussed the patient and she elected to proceed with ultrasound guided core biopsy with clip placement Description of procedure: Patient was brought into the ultrasound room in the left breast was marked. A timeout was completed verifying correct patient, procedure, site, specially, prior to beginning procedure. The left breast was prepped and draped in usual sterile fashion and using local anesthesia was obtained with 1% lidocaine with epi. The lesion was located with the ultrasound. Small incision was made with 11 blade to introduced the mammotome through the skin. Under ultrasound guidance multiple core samples were obtained using then 13-gauge mammotome and sent in formalin for pathology. The Bard dual ultra ribbon clip was then deployed into the biopsy cavity under ultrasound guidance and a picture was taken. Upon completion procedure hemostasis was obtained and a Steri-Strip and OpSite were placed. Patient was then taken to the mammography suite for clip verification. The clip was verified. The patient tolerated the procedure well and was discharged from the breast imaging department good con dition. Complications none 05/17/231503 Cosigner Signature (if applicable): CC: Dr. Abi Hassan MD; No Primary Care Physician Signed Normal [facility] Surgery Specimen Level Kiersten 2023 Surgery Specimen Level IV Patient Age/Sex Location Account Attending Physician MARICRUZ DICKERSON 43/F [id number] Dr. Abi Hassan MD Specimen: [id number] Received: 05/17/23 Status: ILANA Gomezeder Num: [id number] Spec Type: BREAST BX Subm Dr: Dr. Abi Hassan MD HEADER OPERATION: Left breast biopsy PRE-OP DIAGNOSIS: Left breast mass TISSUE SUBMITTED: Left breast mass MICROSCOPIC DIAGNOSIS Left breast mass, core biopsy: Cystic apocrine metaplasia. No evidence of malignancy. AM:am 05/19/23 MICROSCOPIC DESCRIPTION Slides are reviewed. GROSS DESCRIPTION Received is one container labeled with the patient name and designated left brat mass. The specimen consists of multiple irregular fragments of light mckeon soft tissue that in aggregate measure 1.5 x .5 x .5 cm. The specimen is totally submitted in one cassette. / SJ:nasir 05/18/23 TC:5 CPT:71369 Patient Age/Sex Location Account Attending Physician MARICRUZ DICKERSON 43/F [id number] Dr. Abi Hassan MD Signed (signatur e on file) Dr. Sukhwinder Rogers DO 05/19/23 1308 Normal [facility] Comment on above: Performed By: #### P ROSIBEL #### [facility] [address] [place] [place], [address] US Breast Biopsy 1st Lesiono n 2023 US Breast Biopsy 1st Lesion [facility] [address] [place] [address] US Breast Biopsy 1st Lesion MR#: [id number] Acct: [id number] Name: MARICRUZ DICKERSON Rep #: [id number] : 1980 F 43 From: Gopi crane MD PCP: Care Physician,No Primary Status: REG CLI Study: US Breast Biopsy 1st Lesion Date of Exam: 05/07 11/29 Exam# [id number] Ordering Dr: Abi Hassan MD STUDY: ULTRASOUND BREAST - LEFT REASON FOR EXAM: Female, 43 years old. Ultrasound-guided left breast biopsy. TECHNIQUE: Axial and longitudinal images of the LEFT breast were performed with a high resolution ultrasound transducer. # OF IMAGES: 36 COMPARISON: Comparison is made with prior sonogram dated April 08, 2023. FINDINGS: LEFT Breast: Under direct sonographic guidance, the surgeon performed core biopsies of the nodule at the 5:00 position of the breast at 6 cm from the nipple. US/US Breast Biopsy 1st Lesion IMPRESSION: Ultrasound-guided breast biopsy of the hypoechoic solid nodule at the 5:00 position of the breast at 6 cm from the nipple. ASSESSMENT CATEGORY: BIRADS Category 2: Benign. A letter regarding these results will be sent to the patient by the facility within 30 days. Electronically Signed: Gopi Ibrahim MD at 11:01 EDT , CC: Dr. Abi Hassan MD; No Primary Care Physician International Trade Compliance Manager: Signed [facility] Vital Signs Date Time Vital Sign Value Performing Clinician Faci lity 10-17-2024 07:20-0500 Body temperature 96.91 [degF] Mary Praisler-Wood COMPLIANCE ASSOCIATE.BRAND MARKETING MANAGER Work Phone: [facility] 10-17-2024 07:20-0500 Body weight 66 kg Mary Praisler-Wood COMPLIANCE ASSOCIATE.BRAND MARKETING MANAGER Work Phone: [facility] 10-17-2024 07:20-0500 Diastolic blood pressure 70 mm[Hg] Mary Praisler-Wood COMPLIANCE ASSOCIATE.BRAND MARKETING MANAGER Work Phone: [facility] 10-17-2024 07:20-0500 Heart rate 96 /min Mary Praisler-Wood COMPLIANCE ASSOCIATE.BRAND MARKETING MANAGER Work Phone: [facility] 10-17-2024 07:20-0500 Respiratory rate 16 /min Mary Praisler-Wood COMPLIANCE ASSOCIATE.BRAND MARKETING MANAGER Work Phone: [facility] 10-17-2024 07:20-0500 SaO2% (BldA) [Mass fraction] 99 % Mary Praisler-Wood COMPLIANCE ASSOCIATE.BRAND MARKETING MANAGER Work Phone: [facility] 10-17-2024 07:20-0500 Systolic blood pressure 118 mm[Hg] Mary Praisler-Wood COMPLIANCE ASSOCIATE.BRAND MARKETING MANAGER Work Phone: [facility] Encounters Encounter Date Encounter Type Care Provider Facility Start: 10-17-2024 End: 10-17-2024 ambulatory Facility:[facility] Start: 10-17-2024 End: 10-17-2024 Patient encounter procedure Mary Praisler-Wood COMPLIANCE ASSOCIATE.BRAND MARKETING MANAGER Work Phone: [facility] Comment on above: Bacterial conjunctiv itis (Primary Dx) Start: 05-16-2024 ambulatory No Primary Car e Physician Facility:[facility] Start: 04-11-2024 Encounter for gynecological examination (general) (routine) without abnormal findings [facility] Start: 04-10-2024 End: 04-10-2024 ambulatory [facility] Facility:[facility] Start: 04-04-2024 End: 04-04-2024 ambulatory [facility] Facility:[facility] Start: 11-15-2023 End: 11-15-2023 Patient encounter procedure No Primary Care Physician [facility] Work Phone: Start: 11-15-2023 End: 11-15-2023 [facility] Start: 11-11-2023 End: 11-11-2023 ambulatory No Primary Care Physician [facility] Work Phone: Start: 11-11-2023 End: 11-11-2023 Patient encounter procedure No Primary Care Physician [facility] Work Phone: Start: 11-11-2023 End: 11-11-2023 ambulatory [facility] Facility:[facility] Start: 2023 ambulatory [facility] Facilit y:[facility] Start: 2023 End: 2023 ambulatory [facility] Facility:[facility] Start: 04-08-2023 End: 04-08-2023 ambulatory [facility] Work Phone: Start: 04-08-2023 End: 04-08-2023 Patient encounter procedure [facility] Start: 03-30-2023 End: 03-30-2023 ambulatory [facility] Work Phone: Start: 03-30-2023 End: 03-30-2023 Patient encounter procedure [facility] Start: 03-04-2022 End: 03-04-2022 Patient encounter procedure [facility] Procedures Date Procedure Procedure Detail Performing Clinician Start: 11-11-2023 Ultrasonography of breast No Primary Care Physician Start: 04-08-2023 Mammography Start: 04-08-2023 Ultrasonography of breast Start: 03-30-2023 Screening mammography Start: 03-04-2022 Screening mammography Plan of Treatment Date Care Activity Detail Author Start: 06-25-2030 Urine microalbumin profile DTaP,Tdap,Td Vaccine (2 - Td or Tdap) [facility] Start: 07-08-2024 Covid-19 Vaccine () Covid-19 Vaccine () [facility] Start: 07-08-2024 Influenza vaccination Influenza Vacc ine (#1) [facility] Start: 2021 Screening for malign ant neoplasm of breast Mammogram Screening [facility] Start: 2002 Screening for malign ant neoplasm of cervix Cervical Cancer Screening [facility] Start: 2000 Hepatitis B Vaccine (1 of 3 - 19+ 3-dose series) Hepatitis B Vaccine (1 of 3 - 19+ 3-dose series) [facility] Start: 1999 Anxiety Screening Anxiety Screening [facility] Start: 1999 Depression Screening Depression Scre ening [facility] Start: 1999 Hepatitis C screening Hepatitis C Sc reening [facility] Start: 1999 HIV screening HIV Screening [facility] Immunizations Immunization Date Immunization Notes Care Provider Huber galeas 07-15-2020 influenza virus vaccine, unspecified formulation Mary Darden APRN.CNP Work Phone: [facility] 06-25-2020 tetanus toxoid, redu jasmyn diphtheria toxoid, and acellular pertussis vaccine, adsorbed [facility] Payers Date Payer Category Payer Self-pay [id number] 2018 Unknown DEBBI CHAVEZ PPO [id number] 2018-Present [phone] [address] [place] [address] PPO [id number] 2018 Unknown [id number] 2015 Unknown [id number] Unknown [id number] Unknown [id number] Unknown [id number] Unknown [id number] Unknown [id number] Unknown [id number] Unknown [id number] Social History Date Type Detail Facility Start: 06-25-2020 End: 11-15-2023 Tobacco smoking status NHIS Unknown if ever smoked [facility] Start: 1980 Sex Assigned At Female [facility] Start: 10-17-2024 Tobacco smoking stat us IDIS Never smoked tobacco [facility] Start: 10-17-2024 Tobacco use and exposure Smokeless tobacco non-user [facility] Start: 10-17-2020 End: 10-17-2024 History of Social function [facility] Start: 10-17-2020 End: 10-17-2024 Tobacco use panel [facility] National Score (1-10 0), lower number is lower risk Not on file [facility] Start: 07-10-2020 Gender identity Identifies as female gender (finding) [facility] Start: 07-10-2020 Sexual orientation Heterosexual (fco hoffmann) [facility] Instructions 10-17-2024 Patient Instructions Note Date & Type Note Facility 10-17-2024 Instructions Mary Darden APRN.BRAND MARKETING MANAGER - 10/17/2024 7:36 AM EST ASSESSMENT/PLAN: 1. Bacterial conjunctivitis - ICD9: 372.39, 041.9, ICD10: H10.9 - see medication orders - course and contagiousness issues discussed, including hand washing. - call if high fever, development of periorbital redness or swelling, eye pain, visual changes, concerns or if symptoms persist. - POLYMYXIN B SULFATE 10,000 UNIT-TRIMETHOPRIM 1 MG/ML EYE DROPS - Follow-up with your PCP in 3-5 days if symptoms have not improved or sooner if symptoms worsen - Discussed red flags and need for immediate medical evaluation if any occur. - Discussed supportive care treatment with fluids, rest and analgesia. - Discussed expected course of illness Mary Darden APRN.NANCY CONJUNCTIVITIS GENERAL INFORMATION: Conjunctivitis is also known as pink eye. It is an irritation of the underside of the eyelid and the white part of the eye. Conjunctivitis can be caused by infection, chemical irritation, or allergy. If infectious, it is very contagious. INSTRUCTIONS: The doctor has prescribed antibiotic drops or ointment. Use them as prescribed. Do not touch the dropper to the eye. Throw out the medication after completing treatment. If the doctor only prescribed the medication to be placed in one eye, and the other eye starts to bother you with the same symptoms, you may treat it in the same fashion. To ease discomfort, apply a warm or cool clean washcloth to your eye several times a day for 10 to 20 minutes. Gently wipe away discharge from the eyes with tissues. Wash your hands often with soap and use paper towels to dry them. Do not share towels, washcloths, or pillows. This could spread infection. Do not use eye make-up until the infection has resolved. Keep contact lenses out of eyes until the irritation is gone. Discard any eye make-up which you may have contaminated before the infection was diagnosed, and any eye make-up older than one year. Children should not return to school or daycare until the eye is no longer pink. Do not drive or operate machinery if your vision is blurred. Wear sunglasses if your eyes are sensitive to the light. CONTACT YOUR DOCTOR IF YOU OR YOUR CHILD NOTICE: *The eye is still pink 3 days after starting treatment with medicine. *Pain in the eye increases. *The redness is spreading. *Vision becomes blurred. *You have a temperature over 100.5 F (38 C). documented in this encounter [facility] Progress note 10-17-2024 Note Date & Type Note Facility 10-17-2024 Note HNO ID: [id number] Author: MARY DARDEN APRN.NANCY Service: ? Author Type: Nurse Practitioner Type: Progress Notes Filed: 10/17/2024 07:36 Note Text: Subjective Eye Problem Pertinent negatives include no chills, congestion, coughing, fever or sore throat. Maricruz Dickerson is a 44 year old female who presents with possible pink eye in her right eye. She was exposed to pinkeye-her daughter had it last week. She awoke this morning with eye redness, discharge and yellow crusting on eyelids. She denies eye pain, fever, chills, or associated URI symptoms. She has not used any medication in the eye. Review of Systems Constitutional: Negative for chills, fever and malaise/fatigue. HENT: Negative for congestion, ear pain and sore throat. Eyes: Positive for discharge and redness. Negative for blurred vision, double vision, photophobia and pain. Right eye visual acuity is 20/20. Respiratory: Negative for cough. Cardiovascular: Negative. BP 118/70 Pulse 96 Temp 36.1 ?C (96.9 ?F) Resp 16 Wt 66 kg (145 lb 8.1 oz) SpO2 99% No past medical history on file. No past surgical history on file. ALLERGIES Patient has no known allergies. MEDICATIONS progesterone micronized (PROMETRIUM) 200 mg capsule TAKE 1 CAPSULE(S) EVERY DAY BY ORAL ROUTE AT BEDTIME FOR 12 DAYS. (Patient not taking: Reported on 10/17/2024) No family history on file. Social History Tobacco Use Smoking status: Never Smokeless tobacco: Never Vaping Use Vaping status: Never Used Objective Physical Exam Vitals and nursing note reviewed. Constitutional: Appearance: Normal appearance. HENT: Right Ear: Tympanic membrane, ear canal and external ear normal. Left Ear: Tympanic membrane, ear canal and external ear normal. Mouth/Throat: Pharynx: Uvula midline. Eyes: General: Lids are normal. Gaze aligned appropriately. No allergic shiner. Right eye: Discharge present. Left eye: No discharge. Extraocular Movements: Extraocular movements intact. Conjunctiva/sclera: Right eye: Right conjunctiva is injected. No chemosis, exudate or hemorrhage. Left eye: Left conjunctiva is not injected. No chemosis, exudate or hemorrhage. Pupils: Pupils are equal, round, and reactive to light. Cardiovascular: Rate and Rhythm: Normal rate and regular rhythm. Heart sounds: Normal heart sounds. Pulmonary: Effort: Pulmonary effort is normal. No respiratory distress. Breath sounds: Normal breath sounds. No wheezing or rales. Musculoskeletal: Cervical back: Neck supple. Lymphadenopathy: Cervical: No cervical adenopathy. Skin: General: Skin is warm and dry. Findings: No erythema or rash. Neurological: Mental Status: She is alert. ASSESSMENT/PLAN: 1. Bacterial conjunctivitis - ICD9: 372.39, 041.9, ICD10: H10.9 - see medication orders - course and contagiousness issues discussed, including hand washing. - call if high fever, development of periorbital redness or swelling, eye pain, visual changes, concerns or if symptoms persist. - POLYMYXIN B SULFATE 10,000 UNIT-TRIMETHOPRIM 1 MG/ML EYE DROPS - Follow-up with your PCP in 3-5 days if symptoms have not improved or sooner if symptoms worsen - Discussed red flags and need for immediate medical evaluation if any occur. - Discussed supportive care treatment with fluids, rest and analgesia. - Discussed expected course of illness Mary Darden APRN.[facility] History of Present illness Narrative 10-17-2024 Mary Darden APRN.[facility] - 10/17/2024 7:31 AM EST Note Date & Type Note Facility 10-17-2024 History of Presen t illness Narrative Subjective Eye Problem Pertinent negatives include no chills, congestion, coughing, fever or sore throat. Maricruz Dickerson is a 44 year old female who presents with possible pink eye in her right eye. She was exposed to pinkeye-her daughter had it last week. She awoke this morning with eye redness, discharge and yellow crusting on eyelids. She denies eye pain, fever, chills, or associated URI symptoms. She has not used any medication in the eye. Review of Systems Constitutional: Negative for chills, fever and malaise/fatigue. HENT: Negative for congestion, ear pain and sore throat. Eyes: Positive for discharge and redness. Negative for blurred vision, double vision, photophobia and pain. Right eye visual acuity is 20/20. Respiratory: Negative for cough. Cardiovascular: Negative. BP 118/70 Pulse 96 Temp 36.1 C (96.9 F) Resp 16 Wt 66 kg (145 lb 8.1 oz) SpO2 99% No past medical history on file. No past surgical history on file. ALLERGIES Patient has no known allergies. MEDICATIONS progesterone micronized (PROMETRIUM) 200 mg capsule TAKE 1 CAPSULE(S) EVERY DAY BY ORAL ROUTE AT BEDTIME FOR 12 DAYS. (Patient not taking: Reported on 10/17/2024) No family history on file. Social History Tobacco Use Smoking status: Never Smokeless tobacco: Never Vaping Use Vaping status: Never Used Objective Physical Exam Vitals and nursing note reviewed. Constitutional: Appearance: Normal appearance. HENT: Right Ear: Tympanic membrane, ear canal and external ear normal. Left Ear: Tympanic membrane, ear canal and external ear normal. Mouth/Throat: Pharynx: Uvula midline. Eyes: General: Lids are normal. Gaze aligned appropriately. No allergic shiner. Right eye: Discharge present. Left eye: No discharge. Extraocular Movements: Extraocular movements intact. Conjunctiva/sclera: Right eye: Right conjunctiva is injected. No chemosis, exudate or hemorrhage. Left eye: Left conjunctiva is not injected. No chemosis, exudate or hemorrhage. Pupils: Pupils are equal, round, and reactive to light. Cardiovascular: Rate and Rhythm: Normal rate and regular rhythm. Heart sounds: Normal heart sounds. Pulmonary: Effort: Pulmonary effort is normal. No respiratory distress. Breath sounds: Normal breath sounds. No wheezing or rales. Musculoskeletal: Cervical back: Neck supple. Lymphadenopathy: Cervical: No cervical adenopathy. Skin: General: Skin is warm and dry. Findings: No erythema or rash. Neurological: Mental Status: She is alert. ASSESSMENT/PLAN: 1. Bacterial conjunctivitis - ICD9: 372.39, 041.9, ICD10: H10.9 - see medication orders - course and contagiousness issues discussed, including hand washing. - call if high fever, development of periorbital redness or swelling, eye pain, visual changes, concerns or if symptoms persist. - POLYMYXIN B SULFATE 10,000 UNIT-TRIMETHOPRIM 1 MG/ML EYE DROPS - Follow-up with your PCP in 3-5 days if symptoms have not improved or sooner if symptoms worsen - Discussed red flags and need for immediate medical evaluation if any occur. - Discussed supportive care treatment with fluids, rest and analgesia. - Discussed expected course of illness Mary Darden APRN.BRAND MARKETING MANAGER documented in this encounter [facility] Evaluation note Note Date & Type Note Facility Evaluation note No assessment information availfabian hernández [facility] Work Phone: Evaluation note Note Date & Type Note Facility Evaluation note Diagnosis Bacterial conjunctivitis- Primary Other conjunctivitis documented in this encounter [facility] Chief Complaint and Reason for Visit Chief Complaint SCREENING Chief Complaint SCREENING ABNORMAL MAMMOGRAM Chief Complaint FOLLOW UP 6 M FU BREAST US 11/11/23 Advance Directives No Advanced Directives Records Found Advance Directive Response Recorded Date/ Time Living Will No June 25 0 7:13pm Power of Lumber Carrier No June 25 020 7:13pm Advance Directive Response Recorded Date/ Time Living Will No June 25 0 6:13pm Power of Lumber Carrier No June 25 020 6:13pm Family History No Family History Records Found Relationship Condition Age at Onset Recorded Date/T du mother Arthritis Unknown Hypertension Unknown Hyperlipidemia Unknown father Diabetes mellitus Unknown Summary Purpose Additional Source Comments Goals (unrecognized section and content) Goals may be documented in a n alternate sectionGoals may be documented in an alternate sectionGoals may be documented in an alternate sectionGoals may be documented in an alternate section Care Teams (unrecognized sec tion and content) Team Status: Active Member Role Status Dates No Primary Care Physician Family Provider Active No Primary Care Physician Primary Care Provider Active Team Status: Active Member Role Status Dates No Primary Care Physician Primary Care Provider Active Dr. Alida Lopez MD Attending Provider, Refer ring Provider Active Team Status: Inactive Member Role Status Dates No Primary Care Physician Primary Care Provider Active Dr. Alida Lopez MD Attending Provider, Refer ring Provider Active Team Status: Inactive Member Role Status Dates No Primary Care Physician Primary Care Provider, Refer ring Provider Active Dr. Abi Hassan MD Attending Provider Active Team Status: Inactive Member Role Status Dates No Primary Care Physician Primary Care Provider Active Dr. Abi Hassan MD Attending Provider, Referring Provider Active INFORMATION SOURCE (unrecogn ized section and content) DATE CREATED AUTHOR 05/06/2024 [facility] DATE CREATED AUTHOR AUTHOR'S ORGANIZ ATION 10/20/2024 [facility] Source Comments (unrecognize d section and content) In the event this informatio n is protected by the Federal Confidentiality of Alcohol and Drug Abuse Patient Records regulations: The Federal rules restrict any use of the information to criminally investigate or prosecute any alcohol or drug abuse patient.[facility] Reason for Visit (unrecogniz ed section and content) Reason Comments Eye Problem right eye matting an d drainage x this am FOR RECORDS PERTAINING TO PATIENTS WHO ARE OR HAVE BEEN ENROLLED IN A CHEMICAL DEPENDENCY/SUBSTANCEABUSE PROGRAM, SOME INFORMATION MAY BE OMITTED. This clinical summary was aggregated from multiple sources. Caution should be exercised in using it in the provision of clinical care. This summary normalizes information from multiple sources, and as a consequence, information in this document may materially change the coding, format and clinical context of patient data. In addition, data may be omitted in some cases. CLINICAL DECISIONS SHOULD BE BASED ON THE PRIMARY CLINICAL RECORDS. [facility] [employer] [facility]. provides no warranty or guarantee of the accuracy or completeness of information in this document.
[2025-05-19 08:08] LABS: PROLACTIN 19.7 ng/mL (4.8-33.4)
== END | disposition home or self-care (01) ==
LOC: LAB 08:25
PROVIDERS: Referring Provider Obstetrics & Gynecology; Visit Provider Obstetrics & Gynecology
DX: E28.9 Ovarian dysfunction, unspecified (principal)
CPT/HCPCS: 36415; 84146

== ENCOUNTER → 2025-05-27 | Outpatient (CLI) | payer BC, SELFPAY ==
--- OUTSIDE RECORDS SUMMARY | 2025-05-27 21:20 | XMS RPT_ITS | CCD ---
Author Organization [facility] ACCOUNTING SYSTEMS MANAGER [facility] Care Team Providers Care Washer And Crusher Tender Name Role Phone Care Physician, No Primary Primary Care Provider Unavailable Care Physician, No Primary Referring Provider Un available Dr. Abi Hassan Attending Provider Unavailable Primary Care Provider Unavailabl e Care Physician, No Primary Primary Care Provider Unavailable Rebecca Lopez MD, Dr. Irwin Attending Provider Dr. Alida Hooper MD Referring Provider Care Physician, No Primary Primary Care Unava ilable Alida Hooper Referring Unavailable Alida Hooper Attending Unavailable Care Physician, No Primary Primary Care Unava ilable Alida Hooper Referring Unavailable Alida Hooper Attending Unavailable Care Physician, No Primary Primary Care Unava ilable Alida Hooper Attending Unavailable Allergies Allergy Classification Reported Allergen(s) Allergy Type Date of Onset Reaction(s) Facility (2 sources) Cephalexin Drug Allergy 11-15-2023 Itching [facility] (1 source) Cephalexin Drug Allergy 11-15-2023 [facility] Repository Medications Current Medications Medication Drug Class(es) Dates Sig (Normalized) Sig (Original) polymyxin b 56373 unt/ml / trimethoprim 1 mg/ml ophthalmic solution (1 source) Dihydrofolate Reductase Inhibitor Antibacterial, Polymyxin-class Antibacterial Start: 10-17-2024 End: 10-24-2024 take 1 drop(s) into the eye(s) every four hours trimethoprim-polymy rivera (POLYTRIM) 10,000 unit- 1 mg/mL ophthalmic solution Indications: Bacterial conjunctivitis Use 1 Drop in the right eye every 4 hours for 7 days. 10 mL 10/17/2024 10/24/2024 Active progesterone 200 mg oral capsule (6 sources) Progesterone Start: 06-25-2020 take 1 capsule by mouth at bedtime Progesterone Micronized 200 MG capsule Active 200 mg PO AT BEDTIME June 25, 2020 12:00am Problems Problem Classification Problem Date Documented Da te Episodic/Chronic Inflammation; infection of eye (except that caused by tuberculosis or sexually transmitteddisease) (1 source) Bacterial conjunctivitis; Translations: [Unspecified conjunctivitis] 10-17-2024 Episodic Nonmalignant breast conditions (3 sources) Breast lump; Translations: [Unspecified lump in the left breast, unspecified quadrant] Onset: 05-24-2025 05-05-2023 Episodic Open wounds of extremities (5 sources) Laceration of wrist; Translations: [Laceration without foreign body of unspecified wrist, initial encounter] 06-26-2020 Episodic Other endocrine disorders (2 sources) Ovarian dysfunction, unspecified; Translations: [Ovarian dysfunction, unspecified] Onset: 05-20-2025 Chronic Results Test Name Value Interpretation Reference Range Facil ity PROLACTIN 4465on 05-19-2025 PROLACTIN 19.7 ng/mL Normal 4.8-33.4 [facility] Comment on above: Result Comment: Perf ormed at: [employer] [employer] [address] [id number] Peripheral Edp Equipment Operator: Guillermo Bradley PhD, Phone: [phone] Performed By: #### L [id number] #### [facility] [address] [place], [address] Serum or plasma prolactin me asurement (mass/volume)Ordered By: Alida Lopez on 05-18-2025 Prolactin [Mass/Vol] 19.7 ng/mL 4.8-33.4 [facility] Comment on above: Performed at: [facility] [address] [id number] Director: Guillermo Bradley PhD, Phone: [phone] [place]bert 10-17-2024 CN Office Visit (UCWSTR ) MARICRUZ DICKERSON ([id number]) 1980 F Date Time Provider Department 10/17/24 7:15 AM MARY DARDEN [facility] During your visit today, we recorded the following information about you: Temperature Pulse Respiration Blood pressure 96.9 degrees 96/minute 16/minute 118/70 Weight 66 kg Mary Darden APRN.[facility] 10/17/2024 7:36 AM Signed Subjective Eye Problem [...] completing dejuan (more content not included)... Normal [facility] Vital Signs Date Time Vital Sign Value Performing Clinician Irineoi yousif 10-17-2024 07:20-0500 Body temperature 96.91 [degF] Mary Darden APRN.[facility] Work Phone: [facility] 10-17-2024 07:20-0500 Body weight 66 kg Mary Darden APRN.[facility] Work Phone: [facility] 10-17-2024 07:20-0500 Diastolic blood pressure 70 mm[Hg] Mary Darden APRN.[facility] Work Phone: [facility] 10-17-2024 07:20-0500 Heart rate 96 /min Mary Darden APRN.[facility] Work Phone: [facility] 10-17-2024 07:20-0500 Respiratory rate 16 /min Mary Darden APRN.[facility] Work Phone: [facility] 10-17-2024 07:20-0500 SaO2% (BldA) [Mass fraction] 99 % Mary Darden APRN.[facility] Work Phone: [facility] 10-17-2024 07:20-0500 Systolic blood pressure 118 mm[Hg] Mary Darden APRN.[facility] Work Phone: [facility] Encounters Encounter Date Encounter Type Care Provider Facility Start: 06-05-2025 ambulatory No Primary Car e Physician Facility:[facility] Start: 05-20-2025 ambulatory No Primary Car e Physician Facility:[facility] Start: 05-18-2025 End: 05-18-2025 ambulatory No Primary Care Physician -Laboratory Start: 05-18-2025 End: 05-18-[address] Alida Lopez MD -Laboratory Work Phone: Start: 05-18-2025 End: 05-18-2025 ambulatory No Primary Care Physician Facility:[facility] Start: 10-17-2024 End: 10-17-2024 ambulatory Facility:[facility] Start: 10-17-2024 End: 10-17-2024 Patient encounter procedure Mary Darden APRN.PROCESS SAFETY MANAGER Work Phone: [facility] Comment on above: Bacterial conjunctiv itis (Primary Dx) Start: 11-15-2023 End: 11-15-2023 Patient encounter procedure No Primary Care Physician [facility] Work Phone: Start: 11-11-2023 End: 11-11-2023 ambulatory No Primary Care Physician [facility] Work Phone: Start: 11-11-2023 End: 11-11-2023 Patient encounter procedure No Primary Care Physician [facility] Work Phone: Start: 04-08-2023 End: 04-08-2023 ambulatory [facility] Work Phone: Start: 04-08-2023 End: 04-08-2023 Patient encounter procedure [facility] Start: 03-30-2023 End: 03-30-2023 ambulatory [facility] Work Phone: Start: 03-30-2023 End: 03-30-2023 Patient encounter procedure [facility] Start: 03-04-2022 End: 03-04-2022 Patient encounter procedure [facility] Procedures Date Procedure Procedure Detail Performing Clinician Start: 11-11-2023 Ultrasonography of breast No Primary Care Physician Start: 04-08-2023 Mammography Start: 04-08-2023 Ultrasonography of breast Start: 03-30-2023 Screening mammography Start: 03-04-2022 Screening mammography Plan of Treatment Date Care Activity Detail Author Start: 06-25-2030 Urine microalbumin profile DTaP,Tdap,Td Vaccine (2 - Td or Tdap) [facility] Start: 07-08-2024 Covid-19 Vaccine ( season) Covid-19 Vaccine ( season) [facility] Start: 07-08-2024 Influenza vaccination Influenza Vacc ine (#1) [facility] Start: 2021 Screening for malign ant neoplasm of breast Mammogram Screening [facility] Start: 2002 Screening for malign ant neoplasm of cervix Cervical Cancer Screening [facility] Start: 2000 Hepatitis B Vaccine (1 of 3 - 19+ 3-dose series) Hepatitis B Vaccine (1 of 3 - 19+ 3-dose series) [facility] Start: 1999 Anxiety Screening Anxiety Screening [facility] Start: 1999 Depression Screening Depression Scre ening [facility] Start: 1999 Hepatitis C screening Hepatitis C Sc reening [facility] Start: 1999 HIV screening HIV Screening [facility] Immunizations Immunization Date Immunization Notes Care Provider Fa gudelia 07-15-2020 influenza virus vaccine, unspecified formulation Mary Darden APRN.PROCESS SAFETY MANAGER Work Phone: [facility] 06-25-2020 tetanus toxoid, redu jasmyn diphtheria toxoid, and acellular pertussis vaccine, adsorbed [facility] Payers Date Payer Category Payer Self-pay [id number] 2018 Unknown DEBBI DELGADILLO PPO [id number] 2018-Present [phone] [facility] [id number] [place] [address] PPO [id number] 2018 Unknown [id number] 2015 [id number] Unknown [id number] Unknown [id number] Social History Date Type Detail Facility Start: 06-25-2020 End: 11-15-2023 Tobacco smoking status NHIS Unknown if ever smoked [facility] Start: 1980 Sex Assigned At Female [facility] Start: 11-15-2023 End: 10-17-2024 Tobacco smoking status NHIS Never smoked tobacco [facility] Start: 10-17-2024 Tobacco use and exposure Smokeless tobacco non-user [facility] Start: 10-17-2020 End: 10-17-2024 History of Social function [facility] Start: 10-17-2020 End: 10-17-2024 Tobacco use panel [facility] National Score (1-10 0), lower number is lower risk Not on file [facility] Start: 07-10-2020 Gender identity Identifies as female gender (finding) [facility] Start: 07-10-2020 Sexual orientation Heterosexual (fco hoffmann) [facility] Instructions 10-17-2024 Patient Instructions Note Date & Type Note Facility 10-17-2024 Instructions Mary Darden APRN.PROCESS SAFETY MANAGER - 10/17/2024 7:36 AM EST ASSESSMENT/PLAN: [...] Discussed expected course of illness Mary Darden APRN.PROCESS SAFETY MANAGER CONJUNCTIVITIS GENERAL INFORMATION: Conjunctivitis is also known [...] F (39 C). documented in this encounter [facility] Progress note 10-17-2024 Note Date & Type Note Facility 10-17-2024 Note HNO ID: [id number] Author: MARY DARDEN APRN.NANCY Service: ? Author [...] Discussed expected course of illness Mary Darden APRN.[facility] History of Present illness Narrative 10-17-2024 Mary Darden APRN.[facility] - 10/17/2024 7:31 AM EST Note Date [...] Discussed expected course of illness Mary Darden APRN.PROCESS SAFETY MANAGER documented in this encounter [facility] Evaluation note Note Date & Type Note Facility Evaluation note No assessment information availa ble [facility] Work Phone: Evaluation note Note Date & Type Note Facility Evaluation note Diagnosis Bacterial conjunctivitis- Primary Other conjunctivitis documented in this encounter [facility] Reason for referral (narrative) Note Date & Type Note Facility Reason for referral (narrative) No reason for referral information available [facility] Work Phone: Chief Complaint and Reason for Visit Chief Complaint SCREENING Chief Complaint SCREENING ABNORMAL MAMMOGRAM Chief Complaint FOLLOW UP 6 M FU BREAST US 11/11/23 Advance Directives No Advanced Directives Records Found Advance Directive Response Recorded Date/ Time Living Will No June 25 0 7:13pm Power of Cardroom Drawing Runner No June 25 020 7:13pm Advance Directive Response Recorded Date/ Time Living Will No June 25 0 6:13pm Power of Cardroom Drawing Runner No June 25 6:13pm Family History No Family History Records [...] Hassan MD Attending Provider, Referring Provider Active Team Status: Active Member Role/Relationship Status Dates No Primary Care Physician Primary Care Provider Active Team Status: Inactive Member Role/Relationship Status Dates No Primary Care Physician Primary Care Provider Active Start: May 18, 2025 End: May 18, 2025 Dr. Alida Lopez MD Attending Provider Active Start: May 18, 2025 End: May 18, 2025 Dr. Alida Lopez MD Referring Provider Active Start: May 18, 2025 End: May 18, 2025 Source Comments (unrecognize d section and content) In the event this informatio n is protected by the Federal Confidentiality of Alcohol and Drug Abuse Patient Records regulations: The Federal rules restrict any use of the information to criminally investigate or prosecute any alcohol or drug abuse patient.[facility] Reason for Visit (unrecogniz ed section and content) Reason Comments Eye Problem right eye matting an d drainage x this am INFORMATION SOURCE (unrecogn ized section and content) DATE CREATED AUTHOR 10/20/2024 [facility] DATE CREATED AUTHOR AUTHOR'S ORGANIZ ATION 05/27/2025 [facility] FOR RECORDS PERTAINING TO PATIENTS WHO ARE [...] BE BASED ON THE PRIMARY CLINICAL RECORDS. [employer] provides no warranty or guarantee of the accuracy or completeness of information in this document.
[2025-05-29 04:07] LABS: PROGESTERONE 12.2 ng/mL (.)
[2025-05-29 09:08] LABS: PROLACTIN 12.8 ng/mL (4.8-33.4)
== END | disposition home or self-care (01) ==
LOC: LAB 15:26
PROVIDERS: Referring Provider Obstetrics & Gynecology; Visit Provider Obstetrics & Gynecology
DX: E28.9 Ovarian dysfunction, unspecified (principal); N64.4 Mastodynia
CPT/HCPCS: 36415; 84144; 84146

== ENCOUNTER → 2025-06-05 | Outpatient (CLI) | payer BC, SELFPAY ==
--- NOTE | 2025-06-05 08:53 | BI_ITS ---
EXAM: DIAG MAMM W/CAD, BILAT; BILAT BRST BRENDEN STAND ALONE; BREAST LIMITED UNILATERAL 06/05/2025 CLINICAL HISTORY: 45-year-old female presents for right breast pain. Family history of breast cancer in several maternal great aunts. TECHNIQUE: DIAG MAMM W/CAD, BILAT; BILAT BRST BRENDEN STAND ALONE; BREAST LIMITED UNILATERAL. COMPARISON: Prior exam(s) dated 06/05/2025, 05/16/2024, 04/10/2024, 11/11/2023, 05/17/2023, 04/08/2023. FINDINGS: MAMMOGRAM: TISSUE DENSITY: The breasts are extremely dense, which lowers the sensitivity of mammography. The mammogram demonstrates that the patient has dense breasts. Supplemental screening with whole breast ultrasound or MRI may be considered for further evaluation. Bilateral Breast Mammographic Findings: Left breast: 1. In the area of patient's pain in the lower outer left breast there are no suspicious mammographic findings. 2. There is a biopsy marker clip in the lower-outer left breast at posterior depth. 3. The mass in the lower central left breast at posterior dept is again noted. Right breast: No significant masses, calcifications or other abnormalities are identified. ULTRASOUND: 1. Ultrasound performed of the area of patient's concern demonstrates a cystic mass with an associated biopsy marker clip in the left breast at 5 o'clock 6 cm from the nipple measuring 0.4 x 0.3 x 0.2 cm. This mass is more cystic on today's examination when compared to priors exams and had corresponding benign pathology. 2. There is a cyst cluster breast in the left breast at 6 o'clock 6 cm from the nipple, measuring 0.7 x 0.6 x 0.3 cm. This has significantly decreased in size when compared to prior examination of 11/11/2023 when the cyst cluster was larger and more complicated and at that time measuring 1.1 x 0.6 x 0.6 cm. BI/Bilat Brst Brenden Stand Alone IMPRESSION: 1. There are no suspicious mammographic or sonographic findings in the area of patient's pain in the left breast. 2. Benign previously biopsy left breast mass at 5 o'clock is entirely cystic o n today's examination. 3. Interval decrease in size of the benign cyst cluster in the left breast at 6 o'clock when compared to priors dating back to 11/11/2023. OVERALL FINAL ASSESSMENT BI-RADS 2: BENIGN RECOMMENDATION: Routine annual follow-up in 1 Year A letter with findings and recommendations will be mailed to the patient. Reading Location: [id number]
--- OUTSIDE RECORDS SUMMARY | 2025-06-05 09:49 | XMS RPT_ITS | CCD ---
Author Organization [facility] Inform ion Partnership [facility] Care Team Providers Care Commercial Construction Superintendent Name Role Phone Care Physician, No Primary Primary Care Provider Unavailable Care Physician, No Primary Referring Provider Un available Dr. Abi Hassan Attending Provider [phone] Unavailable Primary Care Provider Unavailabl e Care [...] Hooper Attending Unavailable Alida Hooper Referring Unavailable Allergies Allergy Classification Reported Allergen(s) Allergy Type Date of Onset Reaction(s) Facility (3 sources) Cephalexin Drug Allergy 11-15-2023 Itching [facility] (1 source) Cephalexin Drug Allergy 11-15-2023 [facility] Repository Medications Current Medications Medication Drug Class(es) Dates Sig (Normalized) Sig (Original) polymyxin b 91653 unt/ml / trimethoprim 1 mg/ml ophthalmic solution (1 source) Dihydrofolate Reductase Inhibitor Antibacterial, Polymyxin-class Antibacterial Start: 10-17-2024 End: 10-24-2024 take 1 drop(s) into the eye(s) every four hours trimethoprim-polymy rivera (POLYTRIM) 10,000 unit- 1 mg/mL ophthalmic solution Indications: Bacterial conjunctivitis Use 1 Drop in the right eye every 4 hours for 7 days. 10 mL 10/17/2024 10/24/2024 Active progesterone 200 mg oral capsule (7 sources) Progesterone Start: 06-25-2020 take 1 capsule [...] 05-24-2025 05-05-2023 Episodic Open wounds of extremities (6 sources) Laceration of wrist; Translations: [Laceration without foreign body of unspecified wrist, initial encounter] 06-26-2020 Episodic Other endocrine disorders (1 source) Ovarian dysfunction, unspecified; Translations: [Ovarian dysfunction, unspecified] Onset: 05-31-2025 Chronic Results Test Name Value Interpretation Reference Range Facil ity PROGESTERONE 4317on 05-29-20 PROGESTERONE 12.2 ng/mL Normal . [facility] Comment on above: Order Comment: N Result Comment: Foll icular phase 0.1 - 0.9 Luteal phase 1.8 - 23.9 Ovulation phase 0.1 - 12.0 First trimester 11.0 - 44.3 Second trimester 25.4 - 83.3 Third trimester 58.7 - 214.0 Postmenopausal 0.0 - 0.1 Performed at: [facility] [id number] Collection Advisor: Guillermo Bradley PhD, Phone: [phone] Performed By: #### L 322.6672, T3060.4922 #### [facility] [address] [place], [address] PROLACTIN 4465on 05-29-2025 PROLACTIN 12.8 ng/mL Normal 4.8-33.4 [facility] Comment on above: Order Comment: ADD O N PROLACTIN PLEASE, HAS NOT BEEN SENT YET-SWRIGHT Result Comment: Perf ormed at: [facility] [place] [id number] Collection Advisor: Guillermo Bradley PhD, Phone: [phone] Performed By: #### L 801.2600, L3100.5400 #### [facility] [address] [place], [address] Serum or plasma prolactin me asurement (mass/volume)Ordered By: Alida John on 05-28-2025 Prolactin [Mass/Vol] 12.8 ng/mL 4.8-33.4 [facility] Comment on above: Performed at: [facility] [address] [id number] Director: Guillermo Bradley PhD, Phone: [phone] PROLACTIN 4465on 05-19-2025 PROLACTIN 19.7 ng/mL Normal 4.8-33.4 [facility] Comment on above: Result Comment: Perf ormed at: [facility] [id number] Collection Advisor: Guillermo Bradley PhD, Phone: [phone] Performed By: #### L 3100.5400 #### [facility] [address] [facility] [place], [place], [address] Serum or plasma prolactin me asurement (mass/volume)Ordered By: Alida Lopez on 05-18-2025 Prolactin [Mass/Vol] 19.7 ng/mL 4.8-33.4 [facility] Comment on above: Performed at: [facility] [address] [id number] Director: Guillermo Bradley PhD, Phone: [phone] [facility] ) MARICRUZ DICKERSON ([id number]) 1980 F Date Time Provider Department 10/17/24 7:15 AM MARY DARDEN [facility] During your visit today, we recorded the following information about you: Temperature Pulse Respiration Blood pressure 96.9 degrees 96/minute 16/minute 118/70 Weight 66 kg Mary Darden APRN.EVALUATION ANALYST 10/17/2024 7:36 AM Signed Subjective Eye Problem [...] completing dejuan (more content not included)... Normal [facility] Vital Signs Date Time Vital Sign Value Performing Clinician Ofelia dodd 10-17-2024 07:20-0500 Body temperature 96.91 [degF] Mary Praisler-Dirk SUPERVISOR DIALS.EVALUATION ANALYST Work Phone: [facility] 10-17-2024 07:20-0500 Body weight 66 kg Mary Praisler-Dirk SUPERVISOR DIALS.[facility] Work Phone: [facility] 10-17-2024 07:20-0500 Diastolic blood pressure 70 mm[Hg] Mary Praisler-Wood SUPERVISOR DIALS.EVALUATION ANALYST Work Phone: [facility] 10-17-2024 07:20-0500 Heart rate 96 /min Mary Praisler-Wood SUPERVISOR DIALS.EVALUATION ANALYST Work Phone: [facility] 10-17-2024 07:20-0500 Respiratory rate 16 /min Mary Praisler-Wood SUPERVISOR DIALS.EVALUATION ANALYST Work Phone: [facility] 10-17-2024 07:20-0500 SaO2% (BldA) [Mass fraction] 99 % Mary Praisler-Wood SUPERVISOR DIALS.EVALUATION ANALYST Work Phone: [facility] 10-17-2024 07:20-0500 Systolic blood pressure 118 mm[Hg] Mary Praisler-Wood SUPERVISOR DIALS.EVALUATION ANALYST Work Phone: [facility] Encounters Encounter Date Encounter Type Care Provider Facility Start: 06-05-2025 ambulatory No Primary Car e Physician Facility:[facility] Start: 05-27-2025 End: 05-27-2025 ambulatory No Primary Care Physician -Laboratory Start: 05-27-2025 End: 05-27-[address] Alida Lopez MD -Laboratory Work Phone: Start: 05-27-2025 End: 05-27-2025 ambulatory No Primary Care Physician Facility:[facility] Start: 05-18-2025 End: 05-18-2025 ambulatory No Primary Care Physician -Laboratory Start: 05-18-2025 End: 05-18-[address] Alida Lopez MD -Laboratory Work Phone: Start: 05-18-2025 End: 05-18-2025 ambulatory No Primary Care Physician Facility:[facility] Start: 10-17-2024 End: 10-17-2024 ambulatory Facility:[facility] Start: 10-17-2024 End: 10-17-2024 Patient encounter procedure Mary Katalina PORTEREVALUATION ANALYST Work Phone: [facility] Comment on above: Bacterial conjunctiv itis (Primary Dx) Start: 11-15-2023 End: 11-15-2023 Patient encounter procedure No Primary Care Physician [facility] Work Phone: Start: 11-11-2023 End: 11-11-2023 ambulatory No Primary Care Physician [facility] Work Phone: Start: 11-11-2023 End: 11-11-2023 Patient encounter procedure No Primary Care Physician [facility] Work Phone: Start: 04-08-2023 End: 04-08-2023 ambulatory [facility] Work Phone: Start: 04-08-2023 End: 04-08-2023 Patient encounter procedure [facility] Start: 03-30-2023 End: 03-30-2023 ambulatory [facility] Work Phone: Start: 03-30-2023 End: 03-30-2023 Patient encounter procedure [facility] Start: 03-04-2022 End: 03-04-2022 Patient encounter procedure [facility] Procedures Date Procedure Procedure Detail Performing Clinician Start: 05-27-2025 Serum progesterone measurement No Primary Care Physician Comment on above: Follicular phase 0.1 - 0.9 Luteal phase 1.8 - 23.9 Ovulation phase 0.1 - 12.0 First trimester 11.0 - 44.3 Second trimester 25.4 - 83.3 Third trimester 58.7 - 214.0 Postmenopausal 0.0 - 0.1Performed at: [place] [id number] [place], [place] [id number] Director: Guillermo Bradley PhD, Phone: [phone] Start: 11-11-2023 Ultrasonography of breast No Primary Care Physician Start: 04-08-2023 Mammography Start: 04-08-2023 Ultrasonography of breast Start: 03-30-2023 Screening mammography Start: 03-04-2022 Screening mammography Plan of Treatment Date Care Activity Detail Author Start: 06-25-2030 Urine microalbumin profile DTaP,Tdap,Td Vaccine (2 - Td or Tdap) [facility] Start: 07-08-2024 Covid-19 Vaccine () Covid-19 Vaccine () [facility] Start: 07-08-2024 Influenza vaccination Influenza Vacc ine (#1) [facility] Start: 2021 Screening for malign ant neoplasm of breast Mammogram Screening [facility] Start: 2002 Screening for malign ant neoplasm of cervix Cervical Cancer Screening [facility] Start: 2000 Hepatitis B Vaccine (1 of 3 - 19+ 3-dose series) Hepatitis B Vaccine (1 of 3 - 19+ 3-dose series) [facility] Start: 1999 Anxiety Screening Anxiety Screening [facility] Start: 1999 Depression Screening Depression Scre ening [facility] Start: 1999 Hepatitis C screening Hepatitis C Sc reening [facility] Start: 1999 HIV screening HIV Screening [facility] Breast limited [facility] Immunizations Immunization Date Immunization Notes Care Provider Huber galeas 07-15-2020 influenza virus vaccine, unspecified formulation Mary Darden APRN.EVALUATION ANALYST Work Phone: [facility] 06-25-2020 tetanus toxoid, redu jasmyn diphtheria toxoid, and acellular pertussis vaccine, adsorbed [facility] Payers Date Payer Category Payer Self-pay [id number] 2018 Unknown DEBBI DELGADILLO PPO [id number] 2018-Present [phone] [address] [place] [address] PPO [id number] 2018 Unknown [id number] 2015 Unknown [id number] Unknown [id number] Unknown [id number] Social History Date Type Detail Facility Start: 06-25-2020 End: 11-15-2023 Tobacco smoking status SCIS Unknown if ever smoked [facility] Start: 1980 Sex Assigned At Female W [facility] Start: 11-15-2023 End: 10-17-2024 Tobacco smoking status SCIS Never smoked tobacco [facility] Start: 10-17-2024 Tobacco use and exposure Smokeless tobacco non-user [facility] Start: 10-17-2020 End: 10-17-2024 History of Social function [facility] Start: 10-17-2020 End: 10-17-2024 Tobacco use panel [facility] National Score (1-10 0), lower number is lower risk Not on file [facility] Start: 07-10-2020 Gender identity Identifies as female gender (finding) [facility] Start: 07-10-2020 Sexual orientation Heterosexual (fco hoffmann) [facility] Instructions 10-17-2024 Patient Instructions Note Date & Type Note Facility 10-17-2024 Instructions Mary Darden APRN.EVALUATION ANALYST - 10/17/2024 7:36 AM EST ASSESSMENT/PLAN: 1. [...] Discussed expected course of illness Mary Darden APRN.EVALUATION ANALYST CONJUNCTIVITIS GENERAL INFORMATION: Conjunctivitis is also known [...] F (38 C). documented in this encounter [facility] Progress note 10-17-2024 Note Date & Type Note Facility 10-17-2024 Note HNO ID: [id number] Author: MARY DARDEN APRN.EVALUATION ANALYST Service: ? Author Type: Nurse Practitioner Type: [...] Discussed expected course of illness Mary Darden APRN.[facility] History of Present illness Narrative 10-17-2024 Mary Darden APRN.[facility] - 10/17/2024 7:31 AM EST Note Date [...] Discussed expected course of illness Mary Darden APRN.EVALUATION ANALYST documented in this encounter [facility] Evaluation note Note Date & Type Note Facility Evaluation note No assessment information availa ble [facility] Work Phone: Evaluation note Note Date & Type Note Facility Evaluation note Diagnosis Bacterial conjunctivitis- Primary Other conjunctivitis documented in this encounter [facility] Reason for referral (narrative) Note Date & Type Note Facility Reason for referral (narrative) No reason for referral information available [facility] Work Phone: Chief Complaint and Reason for Visit Chief Complaint SCREENING Chief Complaint SCREENING ABNORMAL MAMMOGRAM Chief Complaint FOLLOW UP 6 M FU BREAST US 11/11/23 Chief Complaint Admit Date LABS May 27, 2025 3:25 pm Advance Directives No Advanced Directives Records Found Advance Directive Response Recorded Date/ Time Living Will No June 25 0 7:13pm Power of Carbon Furnace Operator Helper No June 25 020 7:13pm Advance Directive Response Recorded Date/ Time Living Will No June 25 0 6:13pm Power of Carbon Furnace Operator Helper No June 25 020 6:13pm Family History [...] May 18, 2025 End: May 18, 2025 Team Status: Inactive Member Role/Relationship Status Dates No Primary Care Physician Primary Care Provider Active Start: May 27, 2025 End: May 27, 2025 Dr. Alida Lopez MD Attending Provider Active Start: May 27, 2025 End: May 27, 2025 Dr. Alida Lopez MD Referring Provider Active Start: May 27, 2025 End: May 27, 2025 Source Comments (unrecognize d section and content) In the event this informatio n is protected by the Federal Confidentiality of Alcohol and Drug Abuse Patient Records regulations: The Federal rules restrict any use of the information to criminally investigate or prosecute any alcohol or drug abuse patient.[facility] Reason for Visit (unrecogniz ed section and content) Reason Comments Eye Problem right eye matting an d drainage x this am INFORMATION SOURCE (unrecogn ized section and content) DATE CREATED AUTHOR 10/20/2024 [facility] DATE CREATED AUTHOR AUTHOR'S VIOLETA ATION 06/01/2025 [facility] FOR RECORDS PERTAINING TO PATIENTS WHO ARE [...] BE BASED ON THE PRIMARY CLINICAL RECORDS. [employer] [facility]. provides no warranty or guarantee of the accuracy or completeness of information in this document.
== END | disposition home or self-care (01) ==
PROVIDERS: Referring Provider Obstetrics & Gynecology; Visit Provider Obstetrics & Gynecology
DX: N64.4 Mastodynia (principal); E28.9 Ovarian dysfunction, unspecified
CPT/HCPCS: 76642; 77062; 77066; G0279

== ENCOUNTER 2025-08-09 06:37 | Outpatient (RCR) | payer BC, SELFPAY ==
[2025-08-10 04:07] LABS: PROLACTIN 16.0 ng/mL (4.8-33.4)
== END 2025-08-09 18:00 | disposition home or self-care (01) ==
LOC: LAB 06:37
PROVIDERS: Referring Provider Obstetrics & Gynecology; Visit Provider Obstetrics & Gynecology
DX: Z09 Encounter for follow-up examination after completed treatment for conditions other than malignant neoplasm (principal); Z78.9 Other specified health status
CPT/HCPCS: 36415; 84146

== ENCOUNTER 2025-09-14 07:19 | Outpatient (RCR) | payer BC, SELFPAY ==
[2025-09-15 08:08] LABS: PROLACTIN 3.1 ng/mL (4.8-33.4)
== END 2025-10-05 18:00 | disposition home or self-care (01) ==
LOC: LAB 07:19
PROVIDERS: Referring Provider Obstetrics & Gynecology; Visit Provider Obstetrics & Gynecology
DX: Z09 Encounter for follow-up examination after completed treatment for conditions other than malignant neoplasm (principal); Z78.9 Other specified health status
CPT/HCPCS: 36415; 84146

== ENCOUNTER 2025-10-14 06:43 | Outpatient (RCR) | payer BC, SELFPAY ==
[2025-10-15 04:07] LABS: PROLACTIN 2.6 ng/mL (4.8-33.4)
== END 2025-10-14 18:00 | disposition home or self-care (01) ==
LOC: LAB 06:43
PROVIDERS: Referring Provider Obstetrics & Gynecology; Visit Provider Obstetrics & Gynecology
DX: Z09 Encounter for follow-up examination after completed treatment for conditions other than malignant neoplasm (principal)
CPT/HCPCS: 36415; 84146